=== PATIENT | female | born 1960 | race Caucasian/White ===

== ENCOUNTER → 2016-05-31 | Outpatient (CLI) | payer MEDICARE ==
--- NOTE | 2016-05-31 09:22 | CT ---
EXAMINATION TYPE: CT sinus wo con DATE OF EXAM: 05/31/2016 9:14 AM COMPARISON: NONE HISTORY: Chronic sinusitis. History of squamous cell cancer. CT DLP: 536 mGycm CONTRAST: 0 mL of Omnipaque 300 The paranasal sinuses are examined in the axial plane at 2 mm thick sections. Reconstructed images i n the coronal plane were obtained. There is dental amalgam scatter artifact Mucosal thickening or retention that the inferior left maxillary sinus. The ethmoid air cells are juan ar. The sphenoid sinuses are clear. The frontal sinuses are clear. The septum is evaluated. There is septal deviation to the right. The right ostiomeatal unit is patent. The left ostiomeatal unit may be obstructed. Patient is within the Gantry asymmetrically causing limitation on the evaluation. IMPRESSIONS: 1. Possible left maxillary ostiomeatal unit obstruction. On mucosal thickening and/or retention cyst is present left maxillary sinus.
== END | disposition home or self-care (01) ==
LOC: RADCTMAIN 08:42
PROVIDERS: ATTEND Otolaryngology
DX: J32.9 Chronic sinusitis, unspecified (principal)
CPT/HCPCS: 70486

== ENCOUNTER 2016-06-05 19:53 | Emergency (ER) | payer MEDICARE ==
[2016-06-05 20:11] VITALS: BP 152/74; PULSE 83; RESP 18; TEMP 98.3
--- NOTE | 2016-06-05 20:13 | ED ---
General Adult HPI - General Chief complaint: Nausea/Vomiting/Diarrhea Stated complaint: body aches Time Seen by Provider: 06/05/16 19:59 Source: patient Mode of arrival: ambulatory Limitations: no limitations - History of Present Illness Initial comments: This 55-year-old white female presents with a complaint of some nasal congestion. She denies any actual nasal drainage. She's had some slight facial pain at times. She denies any cough, shortness of breath, or fever. She denies any history of chronic sinusitis. She is scheduled for surgery for removal of a squamous cell carcinoma from her left eyebrow by Dr. Garcia in 6 days. She states that her current symptoms evident present for approximately 5 days. She had some nausea yesterday and one episode of diarrhea but none today. Said some slight decrease in energy and some myalgias. She has been utilizing [id number] cough and cold medications thus far. No other complaints or modifying factors. - Related Data Home Medications Medication Instructions Recorded Confirmed Aspirin [Adult Low Dose Aspirin EC] 81 mg PO DAILY 06/18/15 06/18/15 Atenolol [Tenormin] 50 mg PO DAILY 06/18/15 06/20/15 Baclofen [Lioresal] 20 mg PO TID 06/18/15 06/20/15 HYDROcodone/APAP 7.5-325MG [[place] 1 tab PO Q6HR PRN 06/18/15 06/20/15 7.5-325] LORazepam [Ativan] 0.5 mg PO DAILY 06/18/15 06/20/15 LORazepam [Ativan] 1 mg PO HS 06/18/15 06/20/15 Multivitamins, Thera [Multivitamin] 1 tab PO DAILY 06/18/15 06/18/15 Omeprazole [PriLOSEC] 20 mg PO AC-BID 06/18/15 06/20/15 Pravastatin Sodium [Pravachol] 20 mg PO DAILY 06/18/15 06/20/15 Ziprasidone [Geodon] 80 mg PO BID 06/18/15 06/20/15 buPROPion SR [Wellbutrin Sr] 150 mg PO DAILY 06/18/15 06/20/15 lamoTRIgine 150 mg PO BID 06/18/15 06/20/15 Previous Rx's Medication Instructions Recorded Cefuroxime Axetil [Ceftin] 500 mg PO BID #20 tab 06/05/16 Fluticasone Nasal Beat[place] [Flonase 2 spr EA NOSTRIL DAILY #1 bottle 06/05/16 Nasal Beat[place]] Allergies Allergy/AdvReac Type Severity Reaction Status Date / Time Penicillins Allergy Anaphylaxis Verified 06/05/16 20:01 Sulfa (Sulfonamide Allergy Anaphylaxis Verified 06/05/16 20:01 Antibiotics) Review of Systems ROS Statement: Those systems with pertinent positive or pertinent negative responses have been documented in the HPI. ROS Other: All systems not noted in ROS Statement are negative. Past Medical History Past Medical History: Cancer, Diabetes Mellitus, Hyperlipidemia, Hypertension Additional Past Medical History / Comment(s): squamous cell carcinoma Past Surgical History: Bowel Resection, Orthopedic Surgery, Tonsillectomy Past Psychological History: Anxiety, Depression General Exam - General Exam Comments Initial Comments: GENERAL: The patient is well nourished and well hydrated. VITAL SIGNS: Heart rate, blood pressure, respiratory rate reviewed as recorded in nurse's notes. EYES: Pupils are round and reactive. Extraocular movements are intact. No conjunctival / lid redness or swelling. ENT: No external evidence of injury, swelling, or ecchymosis. Airway is patent. Throat is clear. There is some tenderness over the maxillary sinuses bilaterally. There is an abnormal lesion in the left eyebrow. NECK: Nontender. No swelling or evidence of injury. No subcutaneous emphysema. Trachea is midline. No thyroid mass. HEART: Regular rate and rhythm. Good peripheral pulses. LUNGS/CHEST: Breath sounds clear and equal bilaterally. No rales, rhonchi, or wheezes. No ecchymosis, subcutaneous emphysema, or tenderness. ABDOMEN: Abdomen soft without tenderness. No palpable masses or organomegaly. No peritoneal signs. No abdominal wall swelling or ecchymosis. EXTREMITIES: No extremity tenderness. Normal muscle tone and function. No thoracolumbar tenderness. NEUROLOGIC: Sensation is grossly intact. Cranial nerve exam reveals face is symmetrical, tongue is midline, speech is clear. SKIN: No abrasions or ecchymosis is noted. No induration or masses noted. PSYCHIATRIC: Alert and oriented. Appropriate behavior and judgment. Limitations: no limitations Course Vital Signs 06/05/16 20:01 Temperature 98.3 F Pulse Rate 83 Respiratory 18 Rate Blood Pressure 152/74 O2 Sat by Pulse 94 L Oximetry Medical Decision Making - Medical Decision Making The patient is seen and examined. His felt as though she does have a sinusitis and will be treated for this. She understands and agrees with the following disposition and leaves in no distress. Disposition Clinical Impression: Sinusitis Disposition: HOME SELF-CARE Condition: Good Instructions: Sinusitis (ED) Prescriptions: Cefuroxime Axetil [Ceftin] 500 mg PO BID #20 tab Fluticasone Nasal Beatty [Flonase Nasal Beatty] 2 spr EA NOSTRIL DAILY #1 bottle Referrals: Neto Warner MD [Primary Care Provider] - 06/08/16 Time of Disposition: 20:13
== END 2016-06-05 20:19 | disposition home or self-care (01) ==
LOC: EC 19:53
DX: J32.9 Chronic sinusitis, unspecified (principal); M79.1 Myalgia; R11.0 Nausea; R19.7 Diarrhea, unspecified; E11.9 Type 2 diabetes mellitus without complications; E78.5 Hyperlipidemia, unspecified; I10 Essential (primary) hypertension; F32.9 Major depressive disorder, single episode, unspecified; F41.9 Anxiety disorder, unspecified; Z85.828 Personal history of other malignant neoplasm of skin; Z79.82 Long term (current) use of aspirin; Z79.899 Other long term (current) drug therapy; Z88.0 Allergy status to penicillin; Z88.2 Allergy status to sulfonamides
CPT/HCPCS: 99282

== ENCOUNTER 2016-06-10 08:55 | Day surgery (SDC) | payer MEDICARE ==
[2016-06-08 14:25] VITALS: BMI 30.4
[~2016-06-10 08:55] MED LIST: ACETAMINOPHEN TAB 500 MG TAB PO ONE; CLINDAMYCIN 600 MG in DEXTROSE 5% IN WATER 50 ML IVPB ONE; DEXAMETHASONE SOD PHOSPHATE 10 MG/ML 1 ML VIAL IV ONE; DEXAMETHASONE SOD PHOSPHATE 4 MG/ML 1 ML VIAL IV ONE; FAMOTIDINE 20 MG/2 ML VIAL IV ONE; HYDROmorphone 1 MG/ML 1 ML SYRINGE IVP PRN; LACTATED RINGERS 1,000 ML IV SCH; MIDAZOLAM 2 MG/2 ML VIAL IV PRN; ONDANSETRON 4 MG/2 ML VIAL IVP ONE
[2016-06-10 09:43] LABS: Glucose,Whole Blood 118 mg/dL (75-99)
[2016-06-10] MEDS ORDERED: LIDOCAINE 1% 20 ML VIAL (10MG/ML) FOR IV START INTRADERMA ONE (09:44)
[2016-06-10] MEDS ORDERED: ePHEDrine 50 MG/ML 1 ML AMP ONE (10:07)
[2016-06-10] MEDS ORDERED: fentaNYL (PF) 50 MCG/ML 2 ML AMP ONE (10:07)
[2016-06-10] MEDS ORDERED: DEXAMETHASONE SOD PHOS (MDV) 100 MG/10 ML VIAL ONE (10:07)
[2016-06-10] MEDS ORDERED: LIDOCAINE 1% INJ 10MG/ML (20 ML MDV) ONE (10:07)
[2016-06-10] MEDS ORDERED: PROPOFOL 10 MG/ML 20 ML VIAL IV ONE (10:07)
[2016-06-10] MEDS ORDERED: MIDAZOLAM 2 MG/2 ML VIAL ONE (10:07)
[2016-06-10] MEDS ORDERED: SUCCINYLCHOLINE CHLORIDE 100 MG/5 ML SYR IV ONE (10:07)
[2016-06-10] MEDS ORDERED: BUPIVACAIN-EPI 0.5%-1:200,000 30 ML VIAL SQ ONE ×2 (10:45)
[2016-06-10] MEDS ORDERED: LIDOCAINE 1%-EPI 1:100,000 20 ML VIAL SQ ONE ×2 (10:45)
[2016-06-10] MEDS ORDERED: LACTATED RINGERS 1,000 ML IV ONE (11:33)
[2016-06-10 11:54] VITALS: TEMP 98.6
--- NOTE | 2016-06-10 12:05 | P.OP ---
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 Previous biopsy demonstrated squamous cell carcinoma. Wider resection is recommended. All risks, benefits, and alternative therapies were discussed in detail. Consent was obtained and all questions were answered. Operative Findings: Left eyebrow exophytic fungating mass Description of Procedure: Patient underwent a general inhalation anesthetic and the face was sterilely prepped and draped in usual fashion. This very large mass was marked measuring 4.2 x 4 cm anesthetized appropriately and removed with a 15 blade plastic scissors and a Brown-Adson forceps and marked for orientation. Hemostasis was obtained with use of a to coagulation. We sent this for frozen section and all margins were negative for tumor per the pathologist. This patient had very large defect of the left brow and upper eyelid. We elevated lateral and medial pedicle flaps and an H-type incision was made. After extensive undermining in all directions we removed dog ear and rotated the skin and brow into position and we were able to reapproximate the medial and lateral eyebrow. Clearly eyebrow was more shorter than it was but the approximation was excellent after we rotated the skin into the defect and close this area. The secondary defect measured 8.4 x 8 cm. The close the defect after the rotational flaps were placed with 2-0 Vicryl 3-0 PDS and the skin was closed with 2-0 nylon 4-0 PDS 4- 0 Prolene and 5-0 Prolene. Excellent approximation was obtained the patient tolerated this well and follow-up will be in the office in 1 week for recheck. The patient is to contact me if any problems should arise. Steri-Strips were applied along with Medpor tape
[2016-06-10 13:45] VITALS: BP 125/69; PULSE 78; RESP 20
== END 2016-06-10 13:54 | disposition home or self-care (01) ==
LOC: OR 08:55
PROVIDERS: ATTEND Otolaryngology
DX: C44.329 Squamous cell carcinoma of skin of other parts of face (principal); C44.129 Squamous cell carcinoma of skin of left eyelid, including canthus; I10 Essential (primary) hypertension; E78.5 Hyperlipidemia, unspecified; E11.9 Type 2 diabetes mellitus without complications; Z79.84 Long term (current) use of oral hypoglycemic drugs; F39 Unspecified mood [affective] disorder; Z86.73 Personal history of transient ischemic attack (TIA), and cerebral infarction without residual deficits; K21.9 Gastro-esophageal reflux disease without esophagitis; Z79.82 Long term (current) use of aspirin; Z79.891 Long term (current) use of opiate analgesic; Z79.899 Other long term (current) drug therapy; Z88.0 Allergy status to penicillin; Z88.2 Allergy status to sulfonamides; F41.9 Anxiety disorder, unspecified; F32.9 Major depressive disorder, single episode, unspecified; Z91.09 Other allergy status, other than to drugs and biological substances
CPT/HCPCS: 88305; 88331; 88332; 14301; 14302; J2250; J1100 ×2; J2405; J2001; J3010; J0330; J2704

== ENCOUNTER → 2016-11-15 | Outpatient (CLI) | payer MEDICARE ==
--- NOTE | 2016-11-17 09:02 | MM ---
Reason for exam: screening (asymptomatic). Last mammogram was performed 1 year and 1 month ago. History: Patient is postmenopausal and has history of colon cancer at age 51. Family history of breast cancer in paternal aunt at age 30. Took hormonal contraceptives for 5 years beginning at age 47. Physical Findings: A clinical breast exam by your physician is recommended on an annual basis and results should be correlated with mammographic findings. MG 3D Screening Mammo W/Cad Bilateral CC and MLO view(s) were taken. Prior study comparison: October 20, 2015, bilateral MG 3d screening mammo w/cad. July 22, 2014, bilateral MG screening mammo w CAD. The breast tissue is heterogeneously dense. This may lower the sensitivity of mammography. Finding: There are typically benign vascular calcifications in both breasts. There is no discrete abnormality. ASSESSMENT: Benign, BI-RAD 2 RECOMMENDATION: Routine screening mammogram of both breasts in 1 year.
== END | disposition home or self-care (01) ==
LOC: RADMAMWWP 13:35
PROVIDERS: ATTEND Internal Medicine
DX: Z12.31 Encounter for screening mammogram for malignant neoplasm of breast (principal)
CPT/HCPCS: 77063; G0202

== ENCOUNTER → 2017-04-27 | Outpatient (CLI) | payer MEDICARE ==
--- NOTE | 2017-04-27 11:15 | US ---
EXAMINATION TYPE: US kidneys/renal and bladder DATE OF EXAM: 04/27/2017 COMPARISON: 05/06/2015 CLINICAL HISTORY: Frequent urinary tract infection N39. UTI EXAM MEASUREMENTS: Right Kidney: 10.2 x 4.2 x 5.0 cm Left Kidney: 10.7 x 4.6 x 5.8 cm Right Kidney: No hydronephrosis or masses seen Left Kidney: No hydronephrosis or masses seen Bladder: wnl Bilateral Jets seen: Yes IMPRESSION: Normal renal ultrasound. 2. Urinary bladder is unremarkable.
== END | disposition home or self-care (01) ==
LOC: RADUSWWP 10:19
PROVIDERS: ATTEND Internal Medicine
DX: N39.0 Urinary tract infection, site not specified (principal)
CPT/HCPCS: 76770

== ENCOUNTER → 2017-06-29 | Day surgery (SDC) | payer MEDICARE ==
[2017-06-28 12:25] VITALS: BMI 29.1
[~2017-06-29] MED LIST changes: -ACETAMINOPHEN TAB 500 MG TAB PO ONE; +ALPRAZolam 0.25 MG TAB PO PRN; +ALPRAZolam 0.5 MG TAB PO PRN; +ASPIRIN 325 MG TAB PO STA; +ASPIRIN 81 MG PO SCH; +ATENOLOL 50 MG TAB PO SCH; +ATORVASTATIN 80 MG TAB PO STA; -CLINDAMYCIN 600 MG in DEXTROSE 5% IN WATER 50 ML IVPB ONE; -DEXAMETHASONE SOD PHOSPHATE 10 MG/ML 1 ML VIAL IV ONE; -DEXAMETHASONE SOD PHOSPHATE 4 MG/ML 1 ML VIAL IV ONE; -FAMOTIDINE 20 MG/2 ML VIAL IV ONE; +FOLIC PO SCH; +HEPARIN SODIUM 1,000 UN/ML (10ML VL) IV ONE; +HEPARIN SODIUM 1,000 UN/ML (10ML VL) ONE; +HYDROcodone/APAP 10-325MG 1 EACH TAB PO PRN; -HYDROmorphone 1 MG/ML 1 ML SYRINGE IVP PRN; +IOPAMIDOL-370 125ML BTL INJ ONE; +IRON PO SCH; +IV FLUID CONTINUATION 900 ML IV ONE; -LACTATED RINGERS 1,000 ML IV SCH; +LAMOTRIGINE 150 MG PO SCH; +LIDOCAINE 2% INJ 20 MG/ML (20 ML MDV) ONE; +LUTEIN PO SCH; +MIDAZOLAM 2 MG/2 ML VIAL IV ONE; -MIDAZOLAM 2 MG/2 ML VIAL IV PRN; +MIDAZOLAM 2 MG/2 ML VIAL ONE; +MULTIVIT MIN PO SCH; +NITROGLYCERIN SL TABS 0.4 MG TAB SUBLINGUAL PRN; -ONDANSETRON 4 MG/2 ML VIAL IVP ONE; +PRAVASTATIN SODIUM 20 MG TAB PO SCH; +RX INFO: IV CONTRAST WAS GIVEN 1 EACH MISC MISCELLANE PRN; +SODIUM CHLORIDE 0.9% 1,000 ML IV SCH; +SODIUM CHLORIDE 0.9% 1,000 ML in EMPTY BAG 1 BAG IV ONE; +VERAPAMIL 2.5 MG/ML 2 ML AMP ONE; +ZIPRASIDONE 80 MG CAP PO SCH; +[UNRECOGNIZED DRUG - OTHER] PO SCH; +buPROPion XL 300 MG TAB.ER.24H PO SCH; +diphenhydrAMINE 50 MG/ML 1 ML VIAL IVP ONE; +diphenhydrAMINE 50 MG/ML 1 ML VIAL ONE; +fentaNYL (PF) 50 MCG/ML 2 ML AMP IVP ONE; +fentaNYL (PF) 50 MCG/ML 2 ML AMP ONE
[2017-06-29 06:55] VITALS: PULSE 59; TEMP 98.1
[2017-06-29 07:08] LABS: Glucose,Whole Blood 99 mg/dL (75-99)
--- NOTE | 2017-06-29 08:34 | CC ---
CARDIAC CATHETERIZATION REPORT Mrs. Ruggiero is a 56-year-old female with known history of hypertension, hyperlipidemia, diabetes mellitus, who has been complaining of episode of chest discomfort. She underwent a myocardial perfusion imaging that revealed a fixed anterior wall defect with reported fernando-infarct ischemia. In view of that, recommendation was made regarding cardiac catheterization. The procedure as well as the risks and the complications were discussed with the patient who is in full understanding and agreement. 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 She was prepped and draped in conventional fashion. Using Xylocaine anesthesia in the Seldinger technique, a 6-Latvian sheath was introduced in the right radial artery. Selective right and left coronary angiography performed using 5-Latvian 3.5 bend right and left Chaz catheter. Multiple views of the coronary artery including hemiaxial views were obtained. Following that 5-Latvian tight pigtail catheter was introduced into the left ventricle and a 30-degree PERALTA view of the left ventricle was obtained. Following that, the catheter and sheaths were removed. Hemostasis was obtained with deployment of a TR band. There was no immediate complication. Patient is returned to her room in stable condition. FINDINGS: LEFT MAIN: This is a large-sized vessel bifurcating in left circumflex, left anterior descending artery. Left main coronary artery has no evidence of high-grade stenosis. LEFT ANTERIOR DESCENDING ARTERY: This is a large-sized vessel reaching toward the apex giving rise to a large diagonal branch in the proximal segment. The left anterior descending artery and its branches have no evidence of obstructive coronary artery disease. LEFT CIRCUMFLEX: This is a nondominant vessel giving rise to 2 obtuse marginal branches. The first one is large in caliber. The left circumflex as well as branches have no evidence of obstructive coronary artery disease. RIGHT CORONARY ARTERY: This is a dominant vessel large in caliber bifurcating in PDA and posterolateral segment and branches. The right coronary artery as well as branches have no evidence of obstructive coronary artery disease. LEFT VENTRICULOGRAM: Left ventriculogram was performed in 30-degree PERALTA view and revealed normal left ventricular size and systolic function. Ejection fraction 16 to 20 mmHg. CONCLUSION: 1. Normal coronary arteries. 2. Normal left ventricular size and systolic function. RECOMMENDATION: In view of finding anatomy, I recommend to continue medical therapy with aggressive coronary risk modification that has been initiated. Those findings and recommendation were discussed with the patient and her family and are in full understanding and agreement. Duration of procedure is 20 minutes. MMODL / IJN: [id number] /
--- NOTE | 2017-06-29 08:40 | LTR ---
June 29, 2017 Re: Eileen Ruggiero Dear Dr. Warner; I had the opportunity to perform cardiac catheterization on Mrs. Ruggiero at [facility] on the 29 of June and a full copy of the note will be forwarded to you. In brief, she was found to have no evidence of obstructive coronary artery disease with normal left ventricular size and systolic function. Based on those findings, I recommend to continue medical therapy with the aggressive coronary risk modifications that have been initiated. Thank you again for allowing me the opportunity to participate in her care. Please feel free to call for any questions. Sincerely yours, MD VICENTE Serna / RANDALLN: [id number] /
[2017-06-29 14:17] VITALS: RESP 18
[2017-06-29 14:18] VITALS: BP 114/68
== END | disposition home or self-care (01) ==
LOC: CATHCVL 06:19
PROVIDERS: ATTEND Internal Medicine Interventional Cardiology
DX: R07.89 Other chest pain (principal); R94.39 Abnormal result of other cardiovascular function study; I10 Essential (primary) hypertension; E78.2 Mixed hyperlipidemia; E11.9 Type 2 diabetes mellitus without complications; Z79.84 Long term (current) use of oral hypoglycemic drugs; Z79.82 Long term (current) use of aspirin; Z79.1 Long term (current) use of non-steroidal anti-inflammatories (NSAID); Z79.899 Other long term (current) drug therapy; Z88.0 Allergy status to penicillin; Z88.2 Allergy status to sulfonamides
CPT/HCPCS: 93458; C1894; C1769; J2250; J1200; J3010; J1644; Q9967

== ENCOUNTER → 2018-01-17 | Outpatient (CLI) | payer MEDICARE ==
--- NOTE | 2018-01-18 15:02 | MM ---
Reason for exam: screening (asymptomatic). Last mammogram was performed 1 year and 2 months ago. History: Patient is postmenopausal, has history of colon cancer at age 51, and history of other cancer. Family history of breast cancer in paternal aunt at age 30. Took hormonal contraceptives for 5 years beginning at age 47. Physical Findings: A clinical breast exam by your physician is recommended on an annual basis and results should be correlated with mammographic findings. MG 3D Screening Mammo W/Cad Bilateral CC, MLO, and XCCL view(s) were taken. Prior study comparison: November 15, 2016, bilateral MG 3d screening mammo w/cad. October 20, 2015, bilateral MG 3d screening mammo w/cad. The breast tissue is heterogeneously dense. This may lower the sensitivity of mammography. Stable benign calcifications. There is no discrete abnormality. No significant changes when compared with prior studies. ASSESSMENT: Benign, BI-RAD 2 RECOMMENDATION: Routine screening mammogram of both breasts in 1 year.
== END ==
LOC: RADMAMWWP 09:40
PROVIDERS: ATTEND Internal Medicine
DX: Z12.31 Encounter for screening mammogram for malignant neoplasm of breast (principal)
CPT/HCPCS: 77063; 77067

== ENCOUNTER 2018-07-03 11:26 | Observation (INO) | payer MEDICARE ==
[2018-07-03 12:13] LABS: Glucose,Whole Blood 123 mg/dL (75-99)
[2018-07-03 13:22] LABS: Basophils # (A) 0.1 k/uL (0-0.2); Basophils % (A) 1 %; Eosinophils # (A) 0.3 k/uL (0-0.7); Eosinophils % (A) 3 %; HGB 12.2 gm/dL (11.4-16.0); Lymphocytes # (A) 1.9 k/uL (1.0-4.8); Lymphocytes % (A) 23 %; MCHC 31.9 g/dL (31.0-37.0); MCV 93.8 fL (80.0-100.0); Mean Platelet Volume 6.9; Monocytes # (A) 0.3 k/uL (0-1.0); Monocytes % (A) 4 %; Neutrophils # (A) 5.7 k/uL (1.3-7.7); Neutrophils % (A) 67 %; Platelet Count 294 k/uL (150-450); RBC 4.06 m/uL (3.80-5.40); RDW 12.3 % (11.5-15.5); WBC 8.4 k/uL (3.8-10.6)
[2018-07-03 13:48] LABS: Creatine Kinase 90 U/L (30-135)
[2018-07-03 14:01] LABS: Creatine Kinase MB 0.9 ng/mL (0.0-2.4); Troponin I <0.012 ng/mL (0.000-0.034)
[2018-07-03] MEDS ORDERED: ASPIRIN 81 MG PO STA (14:42)
[2018-07-03] MEDS: ASPIRIN 325 MG TAB PO SCH (14:44)
[2018-07-03] MEDS ORDERED: CALCIUM CARBONATE 500 MG CHEWABLE PO PRN (15:22)
[2018-07-03 15:31] LABS: ALT 27 U/L (9-52); AST 21 U/L (14-36); Albumin 4.5 g/dL (3.5-5.0); Alkaline Phosphatase 91 U/L (38-126); Anion Gap 6 mmol/L; Blood Urea Nitrogen 13 mg/dL (7-17); Carbon Dioxide 31 mmol/L (22-30); Chloride 99 mmol/L (98-107); Glucose 113 mg/dL (74-99); Potassium 4.9 mmol/L (3.5-5.1); Sodium 136 mmol/L (137-145); Total Bilirubin 0.3 mg/dL (0.2-1.3); Total Protein 7.4 g/dL (6.3-8.2)
--- NOTE | 2018-07-03 15:36 | P.HPIM ---
History of Present Illness H&P Date: 07/03/18 Chief Complaint: Chest pain This is a 57-year-old female with a known past medical history of diabetes, hypertension, hyperlipidemia, TIA and depression. She presents to the office with complaints of chest pain. She was a direct admit from Dr. Warner's office. Per Dr. Warner the EKG in the office was normal. Patient is complaining of chest pressure in the center of the chest sternum area and epigastric area. She's also stating she's had some acid reflux heartburn symptoms. Patient reports symptoms have been ongoing over the last 3 days. Initially 3 days ago she went to get into her daughter's car and hit the top of her head on the right side. Patient reports that she was very dizzy had a headache for most of the day afterwards. Denies any loss of consciousness. Denies any new vision changes. Denies any numbness or tingling of the extremities. Per patient's he noted that she seemed to be off balance. Computed tomography scan of the brain has been ordered. Patient reports since hitting her head she just has not felt right and has been very nauseous and having chest pains. She's having urinary frequency. Denies any fever, chills, sweats, vomiting, bowel movement changes. Denies any burning with urination. Patient is been admitted to the observation floor. Cardiology is been placed on consult. Patient had a heart catheterization in June 2017 at that time reported normal coronary arteries Review of Systems Please refer to HPI otherwise unremarkable 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, colon ca with bowel resection, History of Any Multi-Drug Resistant Organisms: None Reported Past Surgical History: Bowel Resection, Orthopedic Surgery, Tonsillectomy Additional Past Surgical History / Comment(s): bilat knee arthroscopy, left foot sx, Past Anesthesia/Blood Transfusion Reactions: Postoperative Nausea & Vomiting (PONV) Past Psychological History: Anxiety, Depression Smoking Status: Never smoker Past Alcohol Use History: None Reported Past Drug Use History: None Reported Medications and Allergies Home Medications Medication Instructions Recorded Confirmed Type Aspirin [Adult Low Dose Aspirin EC] 81 mg PO DAILY 06/18/15 07/03/18 History Atenolol [Tenormin] 50 mg PO DAILY 06/18/15 07/03/18 History Pravastatin Sodium [Pravachol] 20 mg PO DAILY 06/18/15 07/03/18 History lamoTRIgine 150 mg PO BID 06/18/15 07/03/18 History HYDROcodone/APAP 10-325MG [[place] 1 tab PO Q6H PRN 06/08/16 07/03/18 History 10-325] buPROPion XL [Wellbutrin Xl] 300 mg PO DAILY 06/08/16 07/03/18 History Naproxen 500 mg PO BID 06/28/17 07/03/18 History metFORMIN HCL [Glucophage] 500 mg PO BID 06/28/17 07/03/18 History Baclofen 10 mg PO DAILY 07/03/18 07/03/18 History Ziprasidone [Geodon] 80 mg PO DAILY 07/03/18 07/03/18 History Allergies Allergy/AdvReac Type Severity Reaction Status Date / Time Penicillins Allergy Anaphylaxis Verified 07/03/18 12:34 Sulfa (Sulfonamide Allergy Anaphylaxis Verified 07/03/18 12:34 Antibiotics) Physical Exam Vitals: Vital Signs Temp Resp BP Pulse Ox 07/03/18 15:16 97.6 F 17 127/85 97 07/03/18 12:00 97.5 F L 145/77 96 Intake and Output 07/03/18 07/03/18 07/03/18 06:59 14:59 22:59 Intake Total 240 Balance 240 Intake: Oral 240 Other: Voiding Method Toilet Weight 82.554 kg Head normocephalic. There is no evidence for any bump on the right side of her head. After palpating the head then did start reporting that her head hurt. No evidence of any laceration. Neck supple Lungs clear to auscultation bilaterally no wheezing or crackles Heart regular rate and rhythm S1-S2, no rub or gallop Abdomen is soft nontender nondistended positive bowel sounds no hepatosplenomegaly Extremities no edema Neuro alert and orientated to 3. No facial droop or slurred speech. Hand occupational hygienist equal bilaterally lower extremity strength equal bilaterally Results CBC & Chem 7: 07/03/18 13:08 07/03/18 13:08 Labs: Abnormal Lab Results - Last 24 Hours (Table) 07/03/18 Range/Units 12:11 POC Glucose (mg/dL) 123 H (75-99) mg/dL Thrombosis Risk Factor Assmnt - Choose All That Apply Any of the Below Risk Factors Present?: Yes Each Factor Represents 1 point: Age 41-60 years Other Risk Factors: No Other congenital or acquired thrombophilia - If yes, enter type in comment: No Thrombosis Risk Factor Assessment Total Risk Factor Score: 1 Thrombosis Risk Factor Assessment Level: Low Risk Assessment and Plan Assessment: 1. Chest pain: Cardiac workup in progress. Check EKG, place patient on telemetry. Consult cardiology. Her cardiac enzymes first set of cardiac enzymes are negative. Check chest x-ray. Check d-dimer. Last heart catheterization June 2017 reported normal coronary arteries. Check amylase and lipase 2. Head trauma: 3 days ago patient hit the top of the right side of her head. Order computed tomography scan of the brain 3. Acid reflux symptoms with heartburn and indigestion. Ruling out any cardiac causes. We'll place patient on Protonix and Tums 4. Urinary frequency check urinalysis with culture rule out UTI 5. Diabetes mellitus type 2 add sliding scale coverage hold metformin during hospitalization 6. Hyperlipidemia 7. hypertension 8. TIA history 9. anxiety and depression 10. Colon Cancer with bowel resection GI prophylaxis protonix and DVT prophylaxis lovenox Time with Patient: Greater than 30 (Greater than 50% of the total time spent in counseling and coordination of care.I performed an examination of the patient and discussed their management with the physician Resident Inspector. I have reviewed the Physician Resident Inspector's notes and agree with the documented findings and plan of care)
--- NOTE | 2018-07-03 15:49 | CT ---
EXAMINATION TYPE: CT brain wo con DATE OF EXAM: 07/03/2018 COMPARISON: None HISTORY: Headache and dizziness CT DLP: 1148.4 mGycm Automated exposure control for dose reduction was used. Head CT using departmental protocol FINDINGS: Inflammatory change possible mucus retention cysts present within the left maxillary sinus. Brain bryant ws no hemorrhage or hydrocephalus. Calvarium is intact. Mastoid air cells are well aerated. IMPRESSION: NO SIGNIFICANT BRAIN ABNORMALITY EVIDENT. SINUS DISEASE.
[2018-07-03 15:58] LABS: Amylase 42 U/L (30-110); Lipase 72 U/L (23-300)
[2018-07-03] MEDS: PANTOPRAZOLE 40 MG TABLET PO SCH (16:00)
[2018-07-03] MEDS: HYDROcodone/APAP 10-325MG 1 EACH TAB PO PRN (16:07)
[2018-07-03] MEDS: lamoTRIgine 100 MG TAB PO SCH (16:07)
--- NOTE | 2018-07-03 16:08 | XR ---
EXAMINATION TYPE: XR chest 2V DATE OF EXAM: 07/03/2018 COMPARISON: Prior chest x-ray 04/04/2012 HISTORY: Chest pain TECHNIQUE: Frontal and lateral views of the chest are obtained. FINDINGS: There is no focal air space opacity, pleural effusion, or pneumothorax seen. The cardiac silhouette size is within normal limits. The osseous structures are intact. There are overlying car diac leads. IMPRESSION: No acute cardiopulmonary process.
[2018-07-03 16:14] LABS: Appearance,Urine Clear (Clear); Bilirubin,Urine Negative (Negative); Blood,Urine Negative (Negative); Color,Urine Light Yellow; Glucose,Urine (UA) Negative (Negative); Ketones,Urine Negative (Negative); Leukocyte Esterase,Urine Negative (Negative); Nitrite,Urine Negative (Negative); PH, Urine 7.5 (5.0-8.0); Protein,Urine Negative (Negative); Specific Gravity,Urine 1.006 (1.001-1.035); Urobilinogen,Urine <2.0 mg/dL (<2.0)
[2018-07-03 16:38] LABS: Glucose,Whole Blood 102 mg/dL (75-99)
[2018-07-03] MEDS: ZIPRASIDONE 80 MG CAP PO SCH (16:53)
[2018-07-03] MEDS: INSULIN ASPART (NovoLOG) 100 UNIT/ML VIAL SQ SCH ×2 (17:07→21:14)
[2018-07-03] MEDS ORDERED: ACETAMINOPHEN TAB 325 MG TAB PO STA (17:59)
[2018-07-03 21:00] LABS: Glucose,Whole Blood 142 mg/dL (75-99)
[2018-07-03 21:12] LABS: Creatine Kinase 74 U/L (30-135)
[2018-07-03 21:25] LABS: Creatine Kinase MB 0.7 ng/mL (0.0-2.4); Troponin I <0.012 ng/mL (0.000-0.034)
[2018-07-04 05:39] LABS: Basophils # (A) 0.1 k/uL (0-0.2); Basophils % (A) 1 %; Eosinophils # (A) 0.3 k/uL (0-0.7); Eosinophils % (A) 5 %; HCT 36.7 % (34.0-46.0); HGB 12.3 gm/dL (11.4-16.0); Lymphocytes # (A) 2.7 k/uL (1.0-4.8); Lymphocytes % (A) 37 %; MCH 31.4 pg (25.0-35.0); MCHC 33.6 g/dL (31.0-37.0); MCV 93.3 fL (80.0-100.0); Mean Platelet Volume 7.1; Monocytes # (A) 0.4 k/uL (0-1.0); Monocytes % (A) 5 %; Neutrophils # (A) 3.6 k/uL (1.3-7.7); Neutrophils % (A) 50 %; Platelet Count 243 k/uL (150-450); RBC 3.93 m/uL (3.80-5.40); RDW 12.8 % (11.5-15.5); WBC 7.3 k/uL (3.8-10.6)
[2018-07-04 05:47] LABS: ALT 26 U/L (9-52); AST 19 U/L (14-36); Albumin 4.4 g/dL (3.5-5.0); Alkaline Phosphatase 87 U/L (38-126); Anion Gap 8 mmol/L; Blood Urea Nitrogen 14 mg/dL (7-17); Calcium 9.7 mg/dL (8.4-10.2); Carbon Dioxide 28 mmol/L (22-30); Chloride 100 mmol/L (98-107); Glucose 117 mg/dL (74-99); Potassium 4.6 mmol/L (3.5-5.1); Sodium 136 mmol/L (137-145); Total Bilirubin 0.4 mg/dL (0.2-1.3); Total Protein 7.1 g/dL (6.3-8.2)
[2018-07-04] MEDS: HYDROcodone/APAP 10-325MG 1 EACH TAB PO PRN (05:53)
[2018-07-04 05:54] LABS: Creatine Kinase 61 U/L (30-135)
[2018-07-04 06:06] LABS: Creatine Kinase MB 0.5 ng/mL (0.0-2.4); Troponin I <0.012 ng/mL (0.000-0.034)
[2018-07-04] MEDS ORDERED: ZIPRASIDONE 80 MG CAP PO SCH ×2 (07:30→15:59)
[2018-07-04 08:04] VITALS: RESP 15
[2018-07-04] MEDS: INSULIN ASPART (NovoLOG) 100 UNIT/ML VIAL SQ SCH ×2 (08:23→12:43)
[2018-07-04] MEDS ORDERED: ATENOLOL 50 MG TAB PO SCH (09:00)
[2018-07-04] MEDS ORDERED: ENOXAPARIN 40 MG/0.4 ML SYRINGE SQ SCH (09:00)
[2018-07-04] MEDS ORDERED: PRAVASTATIN SODIUM 20 MG TAB PO SCH (09:00)
[2018-07-04] MEDS ORDERED: BACLOFEN 10 MG TAB PO SCH (09:00)
[2018-07-04] MEDS ORDERED: buPROPion XL 300 MG TAB.ER.24H PO SCH (09:00)
--- NOTE | 2018-07-04 10:11 | P.CRDCN ---
History of Present Illness History of present illness: This is a pleasant 57-year-old female past medical history significant for diabetes mellitus, hypertension and dyslipidemia. She denies prior history of coronary artery disease. She underwent cardiac catheterization in June 2017 revealing normal coronary arteries with no evidence of obstructive disease. She was at her primary care physician's office yesterday complaining of 3-4 days of a heavy pressure like someone sitting on the chest in the mid-sternal region with radiation to both upper shoulders. There are short bursts of sharp pain. She gets mildly diaphoretic. Pain has been intermittent with no specific aggravating factors. But she does notice it is worse when she is sitting up or moving. No shortness of breath, dizziness, nausea, vomiting or palpitations. She was sent to the hospital for direct and for further evaluation. She is seen and examined resting comfortably in bed. She has no active chest pain at this time. She states she was given Strong earlier this morning and that relieved her discomfort. EKG reveals sinus mechanism with no acute ST or T-wave abnormalities. Chest xray negative for an acute cardiopulmonary process. Laboratory data reviewed, WBC 7.3, hemoglobin 12.3, platelets 243, sodium 136, potassium 4.6, creatinine 0.81, cardiac enzymes negative 3. Current cardiac medications include aspirin 81 mg daily, atenolol 50 mg daily an d pravastatin 20 mg daily. At the time of my exam: CONSTITUTIONAL: Denies fever. Denies chills. EYES: Denies blurred vision. Denies vision changes. Denies eye pain. EARS, NOSE, MOUTH & THROAT: Denies headache. Denies sore throat. Denies ear pain. CARDIOVASCULAR: Denies chest pain. Denies shortness of breath. Denies orthopnea. Denies PND. Denies palpitations. RESPIRATORY: Denies cough. GASTROINTESTINAL: Denies abdominal pain. Denies diarrhea. Denies constipation. Denies nausea. Denies vomiting. MUSCULOSKELETAL: Denies myalgias. INTEGUMENTARY: Denies pruitis. Denies rash. NEUROLOGIC: Denies numbness. Denies tingling. Denies weakness. PSYCHIATRIC: Denies anxiety. Denies depression. ENDOCRINE: Denies fatigue. Denies weight change. Denies polydipsia. Denies polyurina. GENITOURINARY: Denies burning, hematuria or urgency with micturation. HEMATOLOGIC: Denies history of anemia. Denies bleeding. Blood pressure 107/72 heart rate 52 afebrile maintaining oxygen saturation on room air GENERAL: This is a 57-year-old female in no apparent distress at the time of my examination. HEENT: Head is atraumatic, normocephalic. Pupils are equal, round. Sclerae anicteric. Conjunctivae are clear. Mucous membranes of the mouth are moist. Neck is supple. There is no jugular venous distention. No carotid bruit is heard. LUNGS: Clear to auscultation no wheezes, rales or rhonchi. No chest wall tenderness is noted on palpation or with deep breathing. HEART: Regular rate and rhythm without murmurs, rubs or gallops. S1 and S2 heard. ABDOMEN: Soft, nontender. Bowel sounds are heard. No organomegaly noted. EXTREMITIES: No evidence of peripheral edema and no calf tenderness noted. VASCULAR: Radial and dorsalis pedis pulses palpated, no evidence of clubbing. NEUROLOGIC: Patient is awake, alert and oriented x3. ASSESSMENT Chest pain, atypical for angina. An acute coronary event has been ruled out. Recent cardiac catheterization June 2017 revealing normal coronary arteries. Hypertension Dyslipidemia Diabetes mellitus PLAN An acute coronary event has been ruled out. Check lipid profile. Obtain 2-D echocardiogram and Doppler study to assess cardiac structure and function. Perform exercise stress test to assess for stress induced ischemia. If normal she is stable for discharge from a cardiac perspective. Follow up with Dr. Duque in 2 weeks. Thank you kindly for this consultation. Nurse Practitioner note has been reviewed, I agree with a documented findings and plan of care. Patient was seen and examined. 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, colon ca with bowel resection, History of Any Multi-Drug Resistant Organisms: None Reported Past Surgical History: Bowel Resection, Orthopedic Surgery, Tonsillectomy Additional Past Surgical History / Comment(s): bilat knee arthroscopy, left foot sx, Past Anesthesia/Blood Transfusion Reactions: Postoperative Nausea & Vomiting (PONV) Past Psychological History: Anxiety, Depression Smoking Status: Never smoker Past Alcohol Use History: None Reported Past Drug Use History: None Reported Medications and Allergies Home Medications Medication Instructions Recorded Confirmed Type Aspirin [Adult Low Dose Aspirin EC] 81 mg PO DAILY 06/18/15 07/03/18 History Atenolol [Tenormin] 50 mg PO DAILY 06/18/15 07/03/18 History Pravastatin Sodium [Pravachol] 20 mg PO DAILY 06/18/15 07/03/18 History lamoTRIgine 150 mg PO BID 06/18/15 07/03/18 History HYDROcodone/APAP 10-325MG [Strong 1 tab PO Q6H PRN 06/08/16 07/03/18 History 10-325] buPROPion XL [Wellbutrin Xl] 300 mg PO DAILY 06/08/16 07/03/18 History metFORMIN HCL [Glucophage] 500 mg PO BID 06/28/17 07/03/18 History Baclofen 10 mg PO DAILY 07/03/18 07/03/18 History Ziprasidone [Geodon] 80 mg PO DAILY 07/03/18 07/03/18 History Allergies Allergy/AdvReac Type Severity Reaction Status Date / Time Penicillins Allergy Anaphylaxis Verified 07/03/18 12:34 Sulfa (Sulfonamide Allergy Anaphylaxis Verified 07/03/18 12:34 Antibiotics) Physical Exam Vitals: Vital Signs Temp Pulse Resp BP Pulse Ox 07/04/18 04:00 97.6 F 62 18 134/80 99 07/04/18 03:12 18 07/04/18 00:00 97.5 F L 62 18 129/74 98 07/03/18 23:43 18 07/03/18 20:00 97.4 F L 63 18 101/66 96 07/03/18 16:00 17 07/03/18 15:16 97.6 F 17 127/85 97 07/03/18 12:00 97.5 F L 145/77 96 Intake and Output 07/03/18 07/04/18 07/04/18 22:59 06:59 14:59 Intake Total 240 Balance 240 Intake: Oral 240 Other: Voiding Method Toilet Toilet # Voids 1 1 Results 07/04/18 05:23 07/04/18 05:23 Cardiac Enzymes 07/03/18 07/03/18 07/03/18 Range/Units 13:08 13:08 20:24 AST 21 (14-36) U/L CK-MB (CK-2) 0.9 0.7 (0.0-2.4) ng/mL Troponin I <0.012 <0.012 (0.000-0.034) ng/mL 07/04/18 07/04/18 Range/Units 05:23 05:23 AST 19 (14-36) U/L CK-MB (CK-2) 0.5 (0.0-2.4) ng/mL Troponin I <0.012 (0.000-0.034) ng/mL CBC 07/03/18 07/04/18 Range/Units 13:08 05:23 WBC 8.4 7.3 (3.8-10.6) k/uL RBC 4.06 3.93 (3.80-5.40) m/uL Hgb 12.2 12.3 (11.4-16.0) gm/dL Hct 38.0 36.7 (34.0-46.0) % Plt Count 294 243 (150-450) k/uL Comprehensive Metabolic Panel 07/03/18 07/04/18 Range/Units 13:08 05:23 Sodium 136 L 136 L (137-145) mmol/L Potassium 4.9 4.6 (3.5-5.1) mmol/L Chloride 99 100 (98-107) mmol/L Carbon Dioxide 31 H 28 (22-30) mmol/L BUN 13 14 (7-17) mg/dL Creatinine 0.78 0.81 (0.52-1.04) mg/dL Glucose 113 H 117 H (74-99) mg/dL Calcium 10.0 9.7 (8.4-10.2) mg/dL AST 21 19 (14-36) U/L ALT 27 26 (9-52) U/L Alkaline Phosphatase 91 87 (38-126) U/L Total Protein 7.4 7.1 (6.3-8.2) g/dL Albumin 4.5 4.4 (3.5-5.0) g/dL Current Medications Generic Name Dose Route Start Last Admin Trade Name Freq PRN Reason Stop Dose Admin Hydrocodone Bitart/Acetaminophen 1 each 07/03/18 12:58 07/04/18 05:53 Strong 10 PO 1 each Q6H PRN Administration Pain Aspirin 325 mg 07/03/18 13:15 07/03/18 14:44 Aspirin PO Not Given DAILY [facility] Atenolol 50 mg 07/04/18 09:00 Tenormin PO DAILY [facility] Baclofen 10 mg 07/04/18 09:00 Lioresal PO DAILY [facility] Bupropion HCl 300 mg 07/04/18 09:00 Wellbutrin Xl PO DAILY [facility] Calcium Carbonate/Glycine 500 mg 07/03/18 15:22 Tums PO TID PRN Heartburn Enoxaparin Sodium 40 mg 07/04/18 09:00 Lovenox SQ DAILY [facility] Insulin Aspart 0 unit 07/03/18 17:30 07/03/18 21:14 Novolog SQ 1 unit ACHS [facility] Administration Protocol Lamotrigine 150 mg 07/03/18 16:30 07/03/18 16:07 Lamictal PO 150 mg 0900,1600 [facility] Administration Pantoprazole Sodium 40 mg 07/03/18 15:30 07/03/18 16:00 Protonix PO 40 mg AC-BRKFST [facility] Administration Pravastatin Sodium 20 mg 07/04/18 09:00 Pravachol PO DAILY [facility] Ziprasidone 80 mg 07/03/18 16:00 07/03/18 16:53 Geodon PO 80 mg W/BRKFST [facility] Administration Intake and Output 07/03/18 07/04/18 07/04/18 22:59 06:59 14:59 Intake Total 240 Balance 240 Intake: Oral 240 Other: Voiding Method Toilet Toilet # Voids 1 1 07/04/18 05:23 07/04/18 05:23
[2018-07-04] MEDS ORDERED: DOBUTamine DRIP for NUC MED 500 MG in DEXTROSE/WATER 1 250ML.BAG IV ONE (10:50)
--- NOTE | 2018-07-04 11:03 | ECHOF ---
Referral Reason:cp MEASUREMENTS -------- HEIGHT: 165.1 cm WEIGHT: 82.6 kg BP: 134/80 RVIDd: 3.3 cm (< 3.3) IVSd: 1.2 cm (0.6 - 1.1) LVIDd: 4.4 cm (3.9 - 5.3) LVPWd: 1.0 cm (0.6 - 1.1) IVSs: 1.5 cm LVIDs: 3.3 cm LVPWs: 1.0 cm LAESV Index (A-L): 17.21 ml/m Ao Diam: 2.9 cm (2.0 - 3.7) AV Cusp: 1.6 cm (1.5 - 2.6) LA Diam: 3.6 cm (2.7 - 3.8) MV EXCURSION: 18.742 mm (> 18.000) MV EF SLOPE: 120 mm/s (70 - 150) EPSS: 1.3 cm MV E Vinayak: 0.53 m/s MV DecT: 244 ms MV A Vinayak: 0.69 m/s MV E/A Ratio: 0.77 RAP: 5.00 mmHg RVSP: 31.94 mmHg FINDINGS -------- Sinus rhythm. This was a technically adequate study. LV size, wall thickness and systolic function are normal, with an EF greater than 55%. The left saulo tricular size is normal. The right ventricle is normal in size. The left atrial size is normal. Normal LA size by volume 22+/-6 ml/m2. The right atrial size is normal. There is mild aortic valve sclerosis. There is no evidence of aortic regurgitation. Mild mitral annular calcification present. There is trace mitral regurgitation. Mild tricuspid regurgitation present. There is no evidence of pulmonary hypertension. The right v entricular systolic pressure, as measured by Doppler, is 31.94mmHg. There is no pulmonic regurgitation present. The aortic root size is normal. Normal inferior vena cava with normal inspiratory collapse consistent with estimated right atrial pre ssure of 5 mmHg. There is no pericardial effusion. CONCLUSIONS -------- 1. LV size, wall thickness and systolic function are normal, with an EF greater than 55%. 2. The left ventricular size is normal. 3. The right ventricle is normal in size. 4. The left atrial size is normal. 5. Normal LA size by volume 22+/-6 ml/m2. 6. The right atrial size is normal. 7. Interatrial Septum not well visulized. 8. There is mild aortic valve sclerosis. 9. Mild mitral annular calcification present. 10. There is trace mitral regurgitation. 11. Mild tricuspid regurgitation present. 12. There is no evidence of pulmonary hypertension. 13. The right ventricular systolic pressure, as measured by Doppler, is 31.94mmHg. 14. There is no pulmonic regurgitation present. 15. The aortic root size is normal. 16. Normal inferior vena cava with normal inspiratory collapse consistent with estimated right atrial pressure of 5 mmHg. 17. There is no pericardial effusion. CANCER REGISTRY MANAGER: Shyla Carter RDCS
[2018-07-04 11:28] LABS: Cholesterol 176 mg/dL (<200); HDL Cholesterol 77 mg/dL (40-60); LDL Cholesterol,Calculated 76 mg/dL (0-99); Triglycerides 116 mg/dL (<150)
[2018-07-04] MEDS ORDERED: ATROPINE SULFATE 0.1 MG/ML 10ML SYRINGE ONE (12:09)
[2018-07-04] MEDS: lamoTRIgine 100 MG TAB PO SCH (12:39)
[2018-07-04] MEDS: ZIPRASIDONE 80 MG CAP PO SCH (12:39)
[2018-07-04] MEDS: ASPIRIN 325 MG TAB PO SCH (12:39)
[2018-07-04] MEDS: PANTOPRAZOLE 40 MG TABLET PO SCH (12:39)
[2018-07-04 12:40] LABS: Glucose,Whole Blood 114 mg/dL (75-99)
[2018-07-04 12:45] VITALS: BP 114/77; PULSE 78; TEMP 98.4
--- NOTE | 2018-07-04 13:28 | ECHOS ---
STRESS ECHOCARDIOGRAM DATE OF SERVICE: 07/04/2018 INDICATIONS: Chest pain, shortness of breath. MEDICATIONS: BASELINE HEART RATE: 70 BASELINE BLOOD PRESSURE: 111/62 MAXIMUM HEART RATE: 135 MAXIMUM BLOOD PRESSURE: 145/55 85% MPHR: 138 100% MPHR: 162 METS: MAXIMUM STAGE REACHED: TOTAL EXERCISE TIME: CLINICAL INFORMATION: Dobutamine stress echocardiographic study was performed. Patient was given dobutamine infusion as well as atropine. Peak heart rate of 135 was achieved. Maximum blood pressure of 145/55 mmHg was noted. Resting EKG shows normal sinus rhythm with normal ND interval and QRS duration and normal ST-T waves. No ST-segment depression suggestive of ischemia was noted. Isolated PVCs were noted. The baseline echocardiographic images reveal a normal left ventricular chamber size with normal left ventricular systolic function. At the peak dose of dobutamine infusion, normal increase in the wall thickness and contractility was noted. FINAL IMPRESSION: This stress echocardiographic study is negative for stress-induced ischemia. EKG portion of the stress test is not suggestive of ischemia. MMODL / IJN: [id number] /
--- NOTE | 2018-07-04 14:15 | P.DS ---
Providers Date of admission: 07/03/18 11:36 Expected date of discharge: 07/04/18 Attending physician: Neto Warner Consults: 07/03/18 12:58 Consult Physician Routine Consulting Provider: Case Hicks Consult Reason/Comments: chest pain Do you want consulting provider notified?: Yes Placement Type Exists?: Yes Primary care physician: Neto Warner [facility] Course: Discharge diagnosis 1. Chest pain: Cardiac workup in progress. Check EKG, place patient on telemetry. Consult cardiology. Her cardiac enzymes first set of cardiac enzymes are negative. Last heart catheterization June 2017 reported normal coronary arteries. Chest x-ray which showed no acute cardiopulmonary process. D-dimer 0.42. 2-D echo completed showing EF greater than 55%. Dobutamine stress test completed and was negative for stress-induced ischemia. She has been cleared for discharge from cardiology standpoint 2. Concussion: 3 days ago patient hit the top of the right side of her head. Head CT completed showing no significant brain abnormality evident. Sinus disease 3. Acid reflux symptoms with heartburn and indigestion. Ruling out any cardiac causes. We'll place patient on Protonix and Tums. Amylase and lipase within normal limits 4. Urinary frequency check urinalysis with culture rule out UTI. Urinary analysis negative for urinary tract infection 5. Diabetes mellitus type 2 add sliding scale coverage hold metformin during hospitalization 6. Hyperlipidemia 7. hypertension 8. TIA history 9. anxiety and depression 10. Colon Cancer with bowel resection 11. Sinus disease. Will DC patient on Cleocin 150 3 times a day for 7 days Hospital course This is a 57-year-old female with a known past medical history of diabetes, hypertension, hyperlipidemia, TIA and depression. She presents to the office with complaints of chest pain. She was a direct admit from Dr. Warner's office. Per Dr. Warner the EKG in the office was normal. Patient is complaining of chest pressure in the center of the chest sternum area and epigastric area. She's also stating she's had some acid reflux heartburn symptoms. Patient repo rts symptoms have been ongoing over the last 3 days. Initially 3 days ago she went to get into her daughter's car and hit the top of her head on the right side. Patient reports that she was very dizzy had a headache for most of the day afterwards. Denies any loss of consciousness. Denies any new vision changes. Denies any numbness or tingling of the extremities. Per patient's he noted that she seemed to be off balance. Computed tomography scan of the brain has been ordered. Patient reports since hitting her head she just has not felt right and has been very nauseous and having chest pains. She's having urinary frequency. Denies any fever, chills, sweats, vomiting, bowel movement changes. Denies any burning with urination. Patient is been admitted to the observation floor. Cardiology is been placed on consult. Patient had a heart catheterization in June 2017 at that time reported normal coronary arteries On 07/04/2018 patient is alert and oriented 3. Patient is still complaining of mild headache but states improvement. Patient denies any chest pain. Patient underwent stress test. Showing negative for stress-induced ischemia. Head CT completed showing no significant brain abnormality evident. Did show sinus disease. Will discharge patient on Cleocin for 7 days. Patient to follow-up with PCP and cardiology services I performed an examination of the patient and discussed their management with the Nurse Practitioner. I have reviewed the Nurse Practitioner's notes and agree with the documented findings and plan of care Patient Condition at Discharge: Stable Plan - Discharge Summary Discharge Rx Participant: No New Discharge Prescriptions: New Clindamycin [Cleocin] 150 mg PO TID 7 Days #21 cap Continue Atenolol [Tenormin] 50 mg PO DAILY Pravastatin Sodium [Pravachol] 20 mg PO DAILY lamoTRIgine 150 mg PO BID Aspirin [Adult Low Dose Aspirin EC] 81 mg PO DAILY HYDROcodone/APAP 10-325MG [Gilliam 10-325] 1 tab PO Q6H PRN PRN Reason: Pain buPROPion XL [Wellbutrin XL] 300 mg PO DAILY metFORMIN HCL [Glucophage] 500 mg PO BID Baclofen 10 mg PO DAILY Ziprasidone [Geodon] 80 mg PO DAILY Discharge Medication List Aspirin [Adult Low Dose Aspirin EC] 81 mg PO DAILY 06/18/15 [History] Atenolol [Tenormin] 50 mg PO DAILY 06/18/15 [History] Pravastatin Sodium [Pravachol] 20 mg PO DAILY 06/18/15 [History] lamoTRIgine 150 mg PO BID 06/18/15 [History] HYDROcodone/APAP 10-325MG [Gilliam 10-325] 1 tab PO Q6H PRN 06/08/16 [History] buPROPion XL [Wellbutrin XL] 300 mg PO DAILY 06/08/16 [History] metFORMIN HCL [Glucophage] 500 mg PO BID 06/28/17 [History] Baclofen 10 mg PO DAILY 07/03/18 [History] Ziprasidone [Geodon] 80 mg PO DAILY 07/03/18 [History] Clindamycin [Cleocin] 150 mg PO TID 7 Days #21 cap 07/04/18 [Rx] Follow up Appointment(s)/Referral(s): Ky Duque MD [STAFF PHYSICIAN] - 2 Weeks Neto Warner MD [Primary Care Provider] - 1 Week Activity/Diet/Wound Care/Special Instructions: Activity as tolerated Diet heart healthy Discharge Disposition: HOME SELF-CARE
[2018-07-04] MEDS ORDERED: CLINDAMYCIN 150 MG CAP PO SCH (16:00)
== END 2018-07-04 15:35 | disposition home or self-care (01) ==
LOC: 1SOBS 11:36
PROVIDERS: ADMIT Internal Medicine; ATTEND Internal Medicine
DX: R07.89 Other chest pain (principal); S06.0X9A Concussion with loss of consciousness of unspecified duration, initial encounter; K21.9 Gastro-esophageal reflux disease without esophagitis; I10 Essential (primary) hypertension; E78.5 Hyperlipidemia, unspecified; E11.9 Type 2 diabetes mellitus without complications; R61 Generalized hyperhidrosis; R35.0 Frequency of micturition; F41.9 Anxiety disorder, unspecified; F32.9 Major depressive disorder, single episode, unspecified; Z79.82 Long term (current) use of aspirin; Z79.84 Long term (current) use of oral hypoglycemic drugs; Z79.1 Long term (current) use of non-steroidal anti-inflammatories (NSAID); Z79.899 Other long term (current) drug therapy; Z88.0 Allergy status to penicillin; Z88.2 Allergy status to sulfonamides; Z86.73 Personal history of transient ischemic attack (TIA), and cerebral infarction without residual deficits; Z90.49 Acquired absence of other specified parts of digestive tract; Z85.828 Personal history of other malignant neoplasm of skin; Z85.038 Personal history of other malignant neoplasm of large intestine; W22.8XXA Striking against or struck by other objects, initial encounter
CPT/HCPCS: 96372; 93306; 93351; 85379; 80061; 80053 ×2; 82150; 82550 ×2; 82553 ×2; 83690; 84484 ×2; 85025 ×2; 81003; 87086; 71046; 70450; G0378 ×2; G0379; J1250; J1650; J0461

== ENCOUNTER 2018-10-30 12:10 | Emergency (ER) | payer MEDICARE ==
[2018-10-30 12:19] VITALS: TEMP 97.9
[2018-10-30] MEDS ORDERED: SODIUM CHLORIDE 0.9% 1,000 ML IV STA ×2 (12:51)
[2018-10-30] MEDS ORDERED: ASPIRIN 81 MG PO STA (12:51)
--- NOTE | 2018-10-30 12:54 | ED ---
General Adult HPI - General Chief complaint: Back Pain/Injury Stated complaint: neck & back pain Time Seen by Provider: 10/30/18 12:23 Source: patient, RN notes reviewed, old records reviewed Mode of arrival: ambulatory Limitations: no limitations - History of Present Illness Initial comments: Patient is a 58-year-old female presents emergency department today for evaluation with complaints of neck and mid back pain starting 2 days ago. Patient reports that she initially thought she pulled a muscle in her neck and back. She states pain sometimes is worse with movement but has been a dull achy pain as well. Patient states that she has history of hypertension hyperlipidemia and diabetes. Patient states that she has been evaluated for her heart in the past within this year. Her meal room hand is Dr. Duque. Patient states that she has had no previous stents or heart attacks. Patient reports she was encouraged to come to ED by her daughters and . - Related Data Home Medications Medication Instructions Recorded Confirmed Atenolol [Tenormin] 50 mg PO DAILY 06/18/15 10/30/18 Pravastatin Sodium [Pravachol] 20 mg PO DAILY 06/18/15 10/30/18 lamoTRIgine 150 mg PO BID 06/18/15 10/30/18 HYDROcodone/APAP 10-325MG [[place] 1 tab PO Q6H PRN 06/08/16 10/30/18 10-325] buPROPion XL [Wellbutrin XL] 300 mg PO DAILY 06/08/16 10/30/18 Ziprasidone [Geodon] 40 mg PO DAILY 10/30/18 10/30/18 Allergies Allergy/AdvReac Type Severity Reaction Status Date / Time Penicillins Allergy Anaphylaxis Verified 10/30/18 12:31 Sulfa (Sulfonamide Allergy Anaphylaxis Verified 10/30/18 12:31 Antibiotics) Review of Systems ROS Statement: Those systems with pertinent positive or pertinent negative responses have been documented in the HPI. ROS Other: All systems not noted in ROS Statement are negative. 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 Alert and oriented 3. Patient appears in no significant distress. General: Well appearing, well nourished, in no distress. Oriented x 3, normal mood and affect . Ambulating without difficulty. Skin: Good turgor, no rash, unusual bruising or prominent lesions Hair: Normal texture and distribution. HEENT: Head: Normocephalic, atraumatic, no visible or palpable masses, depressions, or scaring. Eyes: Visual acuity intact, conjunctiva clear, sclera non-icteric, EOM intact, PERRL. Ears: EACs clear, TMs translucent & cone of light visualized. hearing intact. Nose: No external lesions, mucosa non-inflamed, septum and turbinates normal Mouth: Mucous membranes moist, no mucosal lesions. Teeth/Gums: No obvious caries or periodontal disease. No gingival inflammation or significant resorption. Pharynx: Mucosa non-inflamed, no tonsillar hypertrophy or exudate Neck: Supple, without lesions, bruits, or adenopathy, thyroid non-enlarged and non-tender Heart: No cardiomegaly or thrills; regular rate and rhythm, no murmur or gallop Lungs: Clear to auscultation and percussion Abdomen: Bowel sounds normal, no tenderness, organomegaly, masses, or hernia Back: Spine normal without deformity or tenderness, no CVA tenderness Extremities: No amputations or deformities, cyanosis, edema or varicosities, peripheral pulses intact Musculoskeletal: Normal gait and station. No misalignment, asymmetry, crepitation, defects, tenderness, masses, effusions, decreased range of motion, instability, atrophy or abnormal strength or tone in the head, neck, spine, ribs, pelvis or extremities. Neurologic: CN 2-12 normal. Sensation to pain, touch, and proprioception normal. DTRs normal in upper and lower extremities. No pathologic reflexes. Psychiatric: Oriented X3, intact recent and remote memory, judgment and insight, normal mood and affect. Limitations: no limitations Course Vital Signs 10/30/18 10/30/18 12:17 13:00 Temperature 97.9 F Pulse Rate 67 65 Respiratory 18 14 Rate Blood Pressure 150/91 106/88 O2 Sat by Pulse 99 97 Oximetry Medical Decision Making - Medical Decision Making 58-year-old female presents with mid back pain , some neck pain. She presents with atypical chest pain symptoms but denies any chest pain. Patient family is concerned this could be related to her heart. This time patient's EKG shows no changes negative troponin test. She's been having her symptoms for the past 2 days. I reviewed patient's previous cardiac cath which were all reviewed to be normal for the past 6 months as well as last stress echo. Patient was informed of these results as well as normal chest x-ray. Patient does state it seems angelique t she was slept on her neck and this could be muscular skeletal. I discussed this time with normal EKG labs and last cardiac cath. Normal unlikely to be critically a component of her pain. I discussed with Dr. Ptael. I discussed that we can discharge the Patient with prompt follow up with her primary care physician but she understands that Regina had any actual chest pain or heaviness to return for reevaluation. Patient is agreeable to treatment plan will comply. Return parameters were discussed. - Lab Data Result diagrams: 10/30/18 12:55 10/30/18 12:55 Lab Results 10/30/18 10/30/18 10/30/18 Range/Units 12:55 12:55 12:55 WBC 9.7 (3.8-10.6) k/uL RBC 3.99 (3.80-5.40) m/uL Hgb 12.3 (11.4-16.0) gm/dL Hct 36.4 (34.0-46.0) % MCV 91.2 (80.0-100.0) fL MCH 30.8 (25.0-35.0) pg MCHC 33.7 (31.0-37.0) g/dL RDW 13.4 (11.5-15.5) % Plt Count 324 (150-450) k/uL Neutrophils % 58 % Lymphocytes % 30 % Monocytes % 4 % Eosinophils % 5 % Basophils % 1 % Neutrophils # 5.6 (1.3-7.7) k/uL Lymphocytes # 2.9 (1.0-4.8) k/uL Monocytes # 0.4 (0-1.0) k/uL Eosinophils # 0.5 (0-0.7) k/uL Basophils # 0.1 (0-0.2) k/uL PT (9.0-12.0) sec INR (<1.2) APTT (22.0-30.0) sec Sodium 135 L (137-145) mmol/L Potassium 5.0 (3.5-5.1) mmol/L Chloride 97 L (98-107) mmol/L Carbon Dioxide 26 (22-30) mmol/L Anion Gap 12 mmol/L BUN 19 H (7-17) mg/dL Creatinine 0.86 (0.52-1.04) mg/dL Est GFR (CKD-EPI)AfAm 86 (>60 ml/min/1.73 sqM) Est GFR (CKD-EPI)NonAf 75 (>60 ml/min/1.73 sqM) Glucose 114 H (74-99) mg/dL Calcium 9.5 (8.4-10.2) mg/dL Magnesium 2.1 (1.6-2.3) mg/dL Total Bilirubin 0.5 (0.2-1.3) mg/dL AST 25 (14-36) U/L ALT 25 (9-52) U/L Alkaline Phosphatase 88 (38-126) U/L Troponin I (0.000-0.034) ng/mL NT-Pro-B Natriuret Pep 208 pg/mL Total Protein 7.5 (6.3-8.2) g/dL Albumin 4.5 (3.5-5.0) g/dL 10/30/18 10/30/18 Range/Units 12:55 12:55 WBC (3.8-10.6) k/uL RBC (3.80-5.40) m/uL Hgb (11.4-16.0) gm/dL Hct (34.0-46.0) % MCV (80.0-100.0) fL MCH (25.0-35.0) pg MCHC (31.0-37.0) g/dL RDW (11.5-15.5) % Plt Count (150-450) k/uL Neutrophils % % Lymphocytes % % Monocytes % % Eosinophils % % Basophils % % Neutrophils # (1.3-7.7) k/uL Lymphocytes # (1.0-4.8) k/uL Monocytes # (0-1.0) k/uL Eosinophils # (0-0.7) k/uL Basophils # (0-0.2) k/uL PT 9.7 (9.0-12.0) sec INR 0.9 (<1.2) APTT 22.6 (22.0-30.0) sec Sodium (137-145) mmol/L Potassium (3.5-5.1) mmol/L Chloride (98-107) mmol/L Carbon Dioxide (22-30) mmol/L Anion Gap mmol/L BUN (7-17) mg/dL Creatinine (0.52-1.04) mg/dL Est GFR (CKD-EPI)AfAm (>60 ml/min/1.73 sqM) Est GFR (CKD-EPI)NonAf (>60 ml/min/1.73 sqM) Glucose (74-99) mg/dL Calcium (8.4-10.2) mg/dL Magnesium (1.6-2.3) mg/dL Total Bilirubin (0.2-1.3) mg/dL AST (14-36) U/L ALT (9-52) U/L Alkaline Phosphatase (38-126) U/L Troponin I <0.012 (0.000-0.034) ng/mL NT-Pro-B Natriuret Pep pg/mL Total Protein (6.3-8.2) g/dL Albumin (3.5-5.0) g/dL 10/30/18 13:49 EKG shows normal sinus rhythm and normal EKG noted. Ventricular rate of 65 bpm. Pulse 174 ms. QRS duration is 86 ms. QT QTc is 370/384 ms. No evidence of ST elevation or T-wave inversion. - Radiology Data Radiology results: report reviewed S x-rays negative for any acute cart upon her process. No change from prior. Disposition Clinical Impression: Neck pain, Back pain Disposition: HOME SELF-CARE Condition: Good Instructions (If sedation given, give patient instructions): Neck Pain (ED) Additional Instructions: Please follow up with family doctor if symptoms have not improved over the next two days. Please return to the emergency room if your symptoms increase or worsen or for any other concerns. Is patient prescribed a controlled substance at d/c from ED?: No Referrals: Neto Warner MD [Primary Care Provider] - 1-2 days Time of Disposition: 15:00
[2018-10-30 13:09] LABS: Basophils # (A) 0.1 k/uL (0-0.2); Basophils % (A) 1 %; Eosinophils # (A) 0.5 k/uL (0-0.7); Eosinophils % (A) 5 %; HCT 36.4 % (34.0-46.0); HGB 12.3 gm/dL (11.4-16.0); Lymphocytes # (A) 2.9 k/uL (1.0-4.8); Lymphocytes % (A) 30 %; MCH 30.8 pg (25.0-35.0); MCHC 33.7 g/dL (31.0-37.0); MCV 91.2 fL (80.0-100.0); Mean Platelet Volume 6.6; Monocytes # (A) 0.4 k/uL (0-1.0); Monocytes % (A) 4 %; Neutrophils # (A) 5.6 k/uL (1.3-7.7); Neutrophils % (A) 58 %; Platelet Count 324 k/uL (150-450); RBC 3.99 m/uL (3.80-5.40); RDW 13.4 % (11.5-15.5); WBC 9.7 k/uL (3.8-10.6)
[2018-10-30 13:16] LABS: INR 0.9 (<1.2); Partial Thromboplastin Time 22.6 sec (22.0-30.0); Prothrombin Time 9.7 sec (9.0-12.0)
--- NOTE | 2018-10-30 13:19 | XR ---
EXAMINATION TYPE: XR chest 2V DATE OF EXAM: 10/30/2018 COMPARISON: Chest x-ray July 03, 2018. HISTORY: Chest pain. TECHNIQUE: Frontal and lateral views of the chest are obtained. FINDINGS: Overlying EKG leads are redemonstrated. There is no focal air space opacity, pleural effus ion, or pneumothorax seen. The cardiac silhouette size is within normal limits. The osseous struct ures are intact. Cholecystectomy clips are noted on lateral view. IMPRESSION: No acute cardiopulmonary process. No significant change from prior.
[2018-10-30 13:22] LABS: Albumin 4.5 g/dL (3.5-5.0); Calcium 9.5 mg/dL (8.4-10.2); Magnesium 2.1 mg/dL (1.6-2.3); Total Bilirubin 0.5 mg/dL (0.2-1.3); Total Protein 7.5 g/dL (6.3-8.2)
[2018-10-30 15:20] VITALS: BP 159/89; PULSE 66; RESP 16
== END 2018-10-30 15:24 | disposition home or self-care (01) ==
LOC: EC 12:10
DX: M54.2 Cervicalgia (principal); M54.9 Dorsalgia, unspecified; R07.89 Other chest pain; E78.5 Hyperlipidemia, unspecified; I10 Essential (primary) hypertension; F32.9 Major depressive disorder, single episode, unspecified; F41.9 Anxiety disorder, unspecified; Z88.0 Allergy status to penicillin; Z88.2 Allergy status to sulfonamides; Z79.899 Other long term (current) drug therapy; Z85.038 Personal history of other malignant neoplasm of large intestine; Z85.828 Personal history of other malignant neoplasm of skin; Z90.49 Acquired absence of other specified parts of digestive tract
CPT/HCPCS: 36415; 71046; 80053; 83735; 83880; 84484; 85025; 85610; 85730; 93005; 96360; 96361; 99284

== ENCOUNTER → 2018-11-03 | Outpatient (CLI) | payer MEDICARE ==
--- NOTE | 2018-11-03 10:44 | US ---
EXAMINATION TYPE: US abdomen complete DATE OF EXAM: 11/03/2018 COMPARISON: NONE CLINICAL HISTORY: R11.11 Vomiting w/o nausea,R68.81 Early satiety. Loss of appetite, nausea and vomit ing, cholecystectomy EXAM MEASUREMENTS: Liver Length: 15.8 cm Gallbladder Wall: Surgically absent CBD: 0.3 cm Spleen: 8.2 cm Right Kidney: 10.3 x 4.7 x 5.0 cm Left Kidney: 10.9 x 4.9 x 4.1 cm Pancreas: Tail obscured by overlying bowel gas Liver: appears within normal limits on some images and slightly hyperechoic and few images Gallbladder: no evidence of stones Evidence for sonographic Rubi's sign: no CBD: appears wnl Spleen: wnl Right Kidney: no evidence of hydronephrosis or mass Left Kidney: no evidence of hydronephrosis or mass Upper IVC: wnl Abd Aorta: wnl The intrahepatic portion of the IVC and proximal abdominal aorta are within normal limits. There is no evidence of cholelithiasis. Common bile duct is unremarkable. The visualized portions of the caraballo creas are homogenous. The spleen is unremarkable. Kidneys are symmetric and free of hydronephrosis. No renal lesions are seen. IMPRESSION: No sonographic evidence of cholelithiasis nor acute cholecystitis. On few images the live r is hyperechoic however on other images of the liver appears within normal limits in echogenicity. T herefore correlation with serum laboratory values is recommended to exclude very early hepatic steato sis.
== END | disposition home or self-care (01) ==
LOC: RADUSWWP 09:19
PROVIDERS: ATTEND Internal Medicine
DX: R11.11 Vomiting without nausea (principal)
CPT/HCPCS: 76700

== ENCOUNTER → 2020-04-04 | Outpatient (CLI) | payer MEDICARE ==
--- NOTE | 2020-04-04 11:52 | XR ---
EXAMINATION TYPE: XR wrist complete LT, XR hand complete LT DATE OF EXAM: 04/04/2020 CLINICAL HISTORY: pain TECHNIQUE: Frontal, lateral and oblique images of the left wrist are obtained. COMPARISON: None. FINDINGS: There is no acute fracture/dislocation evident. The joint spaces appear within normal mast its. The overlying soft tissue appears unremarkable. IMPRESSION: There is no acute fracture or dislocation seen. ICD 10 NO FRACTURE, INITIAL EVALUATION
== END | disposition home or self-care (01) ==
LOC: RADXRMAIN 11:13
PROVIDERS: ATTEND Internal Medicine
DX: M79.662 Pain in left lower leg (principal); M25.532 Pain in left wrist

== ENCOUNTER 2020-04-22 07:31 | Day surgery (SDC) | payer MEDICARE ==
[2020-04-17 10:41] VITALS: BMI 28.4
[~2020-04-22 07:31] MED LIST changes: -ALPRAZolam 0.25 MG TAB PO PRN; -ALPRAZolam 0.5 MG TAB PO PRN; -ASPIRIN 325 MG TAB PO STA; -ASPIRIN 81 MG PO SCH; -ATENOLOL 50 MG TAB PO SCH; -ATORVASTATIN 80 MG TAB PO STA; -FOLIC PO SCH; -HEPARIN SODIUM 1,000 UN/ML (10ML VL) IV ONE; -HEPARIN SODIUM 1,000 UN/ML (10ML VL) ONE; -HYDROcodone/APAP 10-325MG 1 EACH TAB PO PRN; -IOPAMIDOL-370 125ML BTL INJ ONE; -IRON PO SCH; -IV FLUID CONTINUATION 900 ML IV ONE; +LACTATED RINGERS 1,000 ML IV SCH; -LAMOTRIGINE 150 MG PO SCH; -LIDOCAINE 2% INJ 20 MG/ML (20 ML MDV) ONE; -LUTEIN PO SCH; -MIDAZOLAM 2 MG/2 ML VIAL IV ONE; -MIDAZOLAM 2 MG/2 ML VIAL ONE; -MULTIVIT MIN PO SCH; -NITROGLYCERIN SL TABS 0.4 MG TAB SUBLINGUAL PRN; -PRAVASTATIN SODIUM 20 MG TAB PO SCH; -RX INFO: IV CONTRAST WAS GIVEN 1 EACH MISC MISCELLANE PRN; -SODIUM CHLORIDE 0.9% 1,000 ML IV SCH; -SODIUM CHLORIDE 0.9% 1,000 ML in EMPTY BAG 1 BAG IV ONE; -VERAPAMIL 2.5 MG/ML 2 ML AMP ONE; -ZIPRASIDONE 80 MG CAP PO SCH; -[UNRECOGNIZED DRUG - OTHER] PO SCH; -buPROPion XL 300 MG TAB.ER.24H PO SCH; -diphenhydrAMINE 50 MG/ML 1 ML VIAL IVP ONE; -diphenhydrAMINE 50 MG/ML 1 ML VIAL ONE; -fentaNYL (PF) 50 MCG/ML 2 ML AMP IVP ONE; -fentaNYL (PF) 50 MCG/ML 2 ML AMP ONE
[2020-04-22 07:56] VITALS: TEMP 97.3
[2020-04-22] MEDS ORDERED: LIDOCAINE 1% (10MG/ML) FOR IV START INTRADERMA ONE (08:00)
[2020-04-22] MEDS ORDERED: MIDAZOLAM 2 MG/2 ML VIAL ONE (08:03)
[2020-04-22] MEDS ORDERED: PROPOFOL 10 MG/ML 20 ML VIAL IV ONE (08:03)
--- NOTE | 2020-04-22 08:08 | P.GSHP ---
History of Present Illness H&P Date: 04/22/20 Chief Complaint: Change in bowel habits, history of colon cancer Patient here today for colonoscopy. Lately has had increasing constipation and some weight loss. Has a history of personal history of colon cancer in a left- sided polyps in the past. No rectal bleeding. 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, colon ca with bowel resection, History of Any Multi-Drug Resistant Organisms: None Reported Past Surgical History: Bowel Resection, Cholecystectomy, Orthopedic Surgery, Tonsillectomy Additional Past Surgical History / Comment(s): bilat knee arthroscopy, left foot sx, Past Anesthesia/Blood Transfusion Reactions: Postoperative Nausea & Vomiting (PONV) Smoking Status: Never smoker - Past Family History Mother Family Medical History: No Reported History Medications and Allergies Home Medications Medication Instructions Recorded Confirmed Type Pravastatin Sodium [Pravachol] 20 mg PO HS 06/18/15 04/22/20 History atenoloL [Tenormin] 50 mg PO QAM 06/18/15 04/22/20 History lamoTRIgine 150 mg PO BID 06/18/15 04/22/20 History HYDROcodone/APAP 10-325MG [[place] 1 tab PO Q6H PRN 06/08/16 04/22/20 History 10-325] buPROPion XL [Wellbutrin XL] 300 mg PO QAM 06/08/16 04/22/20 History Aspirin [Adult Low Dose Aspirin EC] 81 mg PO DAILY 04/17/20 04/22/20 History FLUoxetine HCL [PROzac] 10 mg PO QAM 04/17/20 04/22/20 History traZODone HCL 100 mg PO HS 04/17/20 04/22/20 History Allergies Allergy/AdvReac Type Severity Reaction Status Date / Time bee venom protein (honey bee) Allergy Anaphylaxis Verified 04/22/20 07:52 Penicillins Allergy Anaphylaxis Verified 04/22/20 07:52 Sulfa (Sulfonamide Allergy Anaphylaxis Verified 04/22/20 07:52 Antibiotics) Surgical - Exam Vital Signs Temp Pulse Resp BP Pulse Ox 97.3 F L 67 16 155/82 98 04/22/20 07:48 04/22/20 07:48 04/22/20 07:48 04/22/20 07:48 04/22/20 07:48 Physical exam: General: Well-developed, well-nourished HEENT: Normocephalic, sclerae nonicteric Abdomen: Nontender, nondistended Extremities: No edema Neuro: Alert and oriented Assessment and Plan (1) Change in bowel habits Narrative/Plan: Will proceed with colonoscopy Current Visit: Yes Status: Acute Code(s): R19.4 - CHANGE IN BOWEL HABIT SNOMED Code(s): 874468459
[2020-04-22 08:09] LABS: Glucose,Whole Blood 127 mg/dL (75-99)
--- NOTE | 2020-04-22 08:19 | P.PCN ---
Date of Procedure: 04/22/20 Procedure(s) Performed: PREOPERATIVE DIAGNOSIS: Change in bowel habits, history of colon cancer POSTOPERATIVE DIAGNOSIS: Transverse colon polyp PROCEDURE: Colonoscopy with snare polypectomy ANESTHESIA: MAC SURGEON: Piotr Aguilar M.D. SPECIMENS: polyp ENDOSCOPIC PROCEDURE: The patient was placed on the endoscopy table in the left decubitus position. The Olympus colonoscope was inserted into the anus and passed under direct visualization to the base of the cecum. The appendiceal orifice was visualized. From that point the scope was slowly withdrawn inspecting all surfaces carefully. There were no neoplastic inflammatory or polypoid lesions throughout the cecum or ascending colon. In the transverse colon a small polyp was seen and removed using the snare with cautery technique. I could not visualize a definite site of left colonic anastomosis. The sigmoid and rectum appeared normal. There is no visible diverticulosis. Digital rectal examination was normal. The patient was taken to the recovery room in stable condition per anesthesia guidelines. RECOMMENDATIONS: Await biopsy results. Follow-up colonoscopy 5 years.
[2020-04-22 08:40] VITALS: BP 117/77; PULSE 61; RESP 16
== END 2020-04-22 09:03 | disposition home or self-care (01) ==
LOC: ORWHC2ENDO 07:31
PROVIDERS: ATTEND Surgery
DX: D12.3 Benign neoplasm of transverse colon (principal); Z85.038 Personal history of other malignant neoplasm of large intestine; E11.9 Type 2 diabetes mellitus without complications; E78.5 Hyperlipidemia, unspecified; I10 Essential (primary) hypertension; Z85.828 Personal history of other malignant neoplasm of skin; Z90.49 Acquired absence of other specified parts of digestive tract; Z98.890 Other specified postprocedural states; Z90.89 Acquired absence of other organs; Z79.899 Other long term (current) drug therapy; Z79.82 Long term (current) use of aspirin; Z88.0 Allergy status to penicillin; Z88.2 Allergy status to sulfonamides; Z91.030 Bee allergy status; F32.9 Major depressive disorder, single episode, unspecified
CPT/HCPCS: 88305; 45385; J2250; J2704

== ENCOUNTER → 2020-06-04 | Outpatient (CLI) | payer MEDICARE ==
--- NOTE | 2020-06-04 16:40 | US ---
EXAMINATION TYPE: US venous doppler duplex LE RT DATE OF EXAM: 06/04/2020 4:26 PM COMPARISON: NONE CLINICAL HISTORY: M79.661 Pain in right lower limb; R22 Swelling. knee pain, no h/o dvt SIDE PERFORMED: Right TECHNIQUE: The lower extremity deep venous system is examined utilizing real time linear array sonog odell with graded compression, doppler sonography and color-flow sonography. VESSELS IMAGED: Common Femoral Vein Deep Femoral Vein Greater Saphenous Vein * Femoral Vein Popliteal Vein Small Saphenous Vein * Proximal Calf Veins (* superficial vessels) Right Leg: Negative for DVT2.9cm popiteal cyst seen anterior to vessels IMPRESSION: No evidence of deep vein thrombosis in the right leg.
== END | disposition home or self-care (01) ==
LOC: RADUSWWP 16:10
PROVIDERS: ATTEND Internal Medicine
DX: R22.41 Localized swelling, mass and lump, right lower limb (principal); Z88.0 Allergy status to penicillin; Z88.2 Allergy status to sulfonamides; Z91.030 Bee allergy status

== ENCOUNTER 2020-10-20 16:34 | Emergency (ER) | payer MEDICARE, OTHER ==
[2020-10-20 17:45] VITALS: TEMP 98.3
[2020-10-20] MEDS ORDERED: SODIUM CHLORIDE 0.9% 1,000 ML IV ONE (20:43)
[2020-10-20] MEDS ORDERED: ONDANSETRON 4 MG/2 ML VIAL IVP STA (20:43)
[2020-10-20] MEDS ORDERED: KETOROLAC 15 MG/ML 1 ML VIAL IVP STA (20:43)
[2020-10-20] MEDS ORDERED: SODIUM CHLORIDE 0.9% 500 ML 500 ML IV ONE (20:43)
--- NOTE | 2020-10-20 20:52 | ED ---
General Adult HPI - General Source: patient, RN notes reviewed Mode of arrival: ambulatory Limitations: no limitations <Alan Ordaz - Last Filed: 10/20/20 22:48> <Crys Lazar - Last Filed: 10/25/20 14:39> - General Chief complaint: Recheck/Abnormal Lab/Rx Stated complaint: Med Reaction/Arm Pain/Dizziness Time Seen by Provider: 10/20/20 20:17 - History of Present Illness Initial comments: This is a 60-year-old female sent emergency Department chief complaint of does not feeling well. She states she did urinary frequency dysuria, diarrhea abdominal cramping started Tuesday and Tuesday continues today. Patient states she just feels fatigued, more now now no chest pain or shortness of breath she did state that she had COVID-19 booster vaccine on Tuesday states that she is some left arm pain and swelling social. Patient denies any sick contacts denies any headache dizziness neck pain. (Alan Ordaz) - Related Data Home Medications Medication Instructions Recorded Confirmed atenoloL [Tenormin] 50 mg PO DAILY 06/18/15 07/31/20 HYDROcodone/APAP 10-325MG [Modena 1 tab PO Q6H PRN 06/08/16 07/31/20 10-325] buPROPion XL [Wellbutrin XL] 300 mg PO DAILY 06/08/16 07/31/20 Aspirin [Adult Low Dose Aspirin EC] 81 mg PO DAILY 04/17/20 07/31/20 Baclofen [Lioresal] 10 mg PO TID PRN 07/31/20 07/31/20 Ergocalciferol [Vitamin D2 (1250 1,250 mcg PO FLOREZ 07/31/20 07/31/20 Mcg = 15246 Iu)] Omeprazole 20 mg PO BID 07/31/20 07/31/20 hydrOXYzine pamoate [Vistaril] 25 mg PO DAILY PRN 07/31/20 07/31/20 Previous Rx's Medication Instructions Recorded Atorvastatin [Lipitor] 40 mg PO DAILY tab 08/03/20 Mirtazapine [Remeron] 15 mg PO HS tab 08/03/20 Sertraline [Zoloft] 50 mg PO DAILY tab 08/03/20 lamoTRIgine [LaMICtal] 100 mg PO BID tab 08/03/20 Allergies Allergy/AdvReac Type Severity Reaction Status Date / Time bee venom protein (honey bee) Allergy Anaphylaxis Verified 10/20/20 17:45 Penicillins Allergy Anaphylaxis Verified 10/20/20 17:45 Sulfa (Sulfonamide Allergy Anaphylaxis Verified 10/20/20 17:45 Antibiotics) Review of Systems ROS Other: All systems not noted in ROS Statement are negative. <SushmaAlan Donte - Last Filed: 10/20/20 22:48> ROS Other: All systems not noted in ROS Statement are negative. <Crys Lazar - Last Filed: 10/25/20 14:39> ROS Statement: Those systems with pertinent positive or pertinent negative responses have been documented in the HPI. 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 History of Any Multi-Drug Resistant Organisms: None Reported Past Surgical History: Bowel Resection, Cholecystectomy, Heart Catheterization, Orthopedic Surgery, Tonsillectomy, Tubal Ligation Additional Past Surgical History / Comment(s): Skin cancer removal, bilateral knee arthroscopies, L foot surgery d/t "too many bones", colonoscopy/polypectomy, 2018 cardiac cath-normal. Past Anesthesia/Blood Transfusion Reactions: Postoperative Nausea & Vomiting (PONV) Additional Past Anesthesia/Blood Transfusion Reaction / Comment(s): Pt has severe clausterphobia. Past Psychological History: Anxiety, Depression Smoking Status: Never smoker Past Alcohol Use History: None Reported Past Drug Use History: None Reported - Past Family History Mother Family Medical History: No Reported History Additional Family Medical History / Comment(s): Mother is healthy. She is living. Father Family Medical History: Cancer Additional Family Medical History / Comment(s): Father from colon cancer with mets. <Alan Ordaz - Last Filed: 10/20/20 22:48> General Exam Limitations: no limitations General appearance: alert, in no apparent distress Head exam: Present: atraumatic, normocephalic, normal inspection Eye exam: Present: normal appearance, PERRL, EOMI. Absent: scleral icterus, conjunctival injection, periorbital swelling ENT exam: Present: normal exam, normal oropharynx, mucous membranes moist Neck exam: Present: normal inspection, full ROM. Absent: tenderness, meningismus, lymphadenopathy Respiratory exam: Present: normal lung sounds bilaterally. Absent: respiratory distress, wheezes, rales, rhonchi, stridor Cardiovascular Exam: Present: regular rate, normal rhythm, normal heart sounds. Absent: systolic murmur, diastolic murmur, rubs, gallop, clicks GI/Abdominal exam: Present: soft, tenderness, normal bowel sounds. Absent: distended, guarding, rebound, rigid Back exam: Absent: CVA tenderness (R), CVA tenderness (L) Neurological exam: Present: alert Skin exam: Present: warm, dry, intact, normal color. Absent: rash <Alan Ordaz - Last Filed: 10/20/20 22:48> Course Vital Signs 10/20/20 10/20/20 17:41 23:13 Temperature 98.3 F 98.3 F Pulse Rate 62 76 Respiratory 18 16 Rate Blood Pressure 131/74 135/72 O2 Sat by Pulse 94 L 97 Oximetry Medical Decision Making - Lab Data Result diagrams: 10/20/20 22:00 10/20/20 22:00 <Alan Ordaz - Last Filed: 10/20/20 22:48> - Lab Data Result diagrams: 10/20/20 22:00 10/20/20 22:00 <Crys Lazar - Last Filed: 10/25/20 14:39> - Medical Decision Making 60-year-old female presented for possible reaction to covid19 Booster vaccine. Patient had lab work urinalysis was hydrated feels greatly improved will be discharged in stable condition return parameters were discussed. (Alan Ordaz) I was available for consultation in the emergency department. The history and physical exam were done by the midlevel provider. I was consulted for this patients care. I reviewed the case with the midlevel provider and based on their presentation of the patient, I agree with the assessment, medical decision making and plan of care as documented. Chart was dictated using [employer] dictation software. Attempts were made to correct any dictation errors however some typographical errors may persist. Patient was seen during a national state of emergency due to the Covid-19 pandemic. (Crys Lazar) - Lab Data Lab Results 10/20/20 10/20/20 10/20/20 Range/Units 21:42 22:00 22:00 WBC 8.9 (3.8-10.6) k/uL RBC 3.80 (3.80-5.40) m/uL Hgb 12.0 (11.4-16.0) gm/dL Hct 35.4 (34.0-46.0) % MCV 93.2 (80.0-100.0) fL MCH 31.7 (25.0-35.0) pg MCHC 34.0 (31.0-37.0) g/dL RDW 13.2 (11.5-15.5) % Plt Count 240 (150-450) k/uL MPV 7.9 Neutrophils % 54 % Lymphocytes % 28 % Monocytes % 5 % Eosinophils % 9 % Basophils % 1 % Neutrophils # 4.9 (1.3-7.7) k/uL Lymphocytes # 2.5 (1.0-4.8) k/uL Monocytes # 0.5 (0-1.0) k/uL Eosinophils # 0.8 H (0-0.7) k/uL Basophils # 0.1 (0-0.2) k/uL Sodium 134 L (137-145) mmol/L Potassium 4.2 (3.5-5.1) mmol/L Chloride 97 L (98-107) mmol/L Carbon Dioxide 28 (22-30) mmol/L Anion Gap 9 mmol/L BUN 13 (7-17) mg/dL Creatinine 0.74 (0.52-1.04) mg/dL Est GFR (CKD-EPI)AfAm >90 (>60 ml/min/1.73 sqM) Est GFR (CKD-EPI)NonAf 88 (>60 ml/min/1.73 sqM) Glucose 109 H (74-99) mg/dL Plasma Lactic Acid Kwabena (0.7-2.0) mmol/L Calcium 9.3 (8.4-10.2) mg/dL Magnesium 2.1 (1.6-2.3) mg/dL Total Bilirubin 0.3 (0.2-1.3) mg/dL AST 30 (14-36) U/L ALT 38 H (4-34) U/L Alkaline Phosphatase 134 H (38-126) U/L Total Protein 7.2 (6.3-8.2) g/dL Albumin 4.3 (3.5-5.0) g/dL Urine Color Yellow Urine Appearance Clear (Clear) Urine pH 5.5 (5.0-8.0) Ur Specific Naselle 1.022 (1.001-1.035) Urine Protein Negative (Negative) Urine Glucose (UA) Negative (Negative) Urine Ketones Negative (Negative) Urine Blood Negative (Negative) Urine Nitrite Negative (Negative) Urine Bilirubin Negative (Negative) Urine Urobilinogen <2.0 (<2.0) mg/dL Ur Leukocyte Esterase Small H (Negative) Urine RBC 1 (0-5) /hpf Urine WBC 4 (0-5) /hpf Ur Squamous Epith Cells 1 (0-4) /hpf Urine Mucus Few H (None) /hpf 10/20/20 Range/Units 22:00 WBC (3.8-10.6) k/uL RBC (3.80-5.40) m/uL Hgb (11.4-16.0) gm/dL Hct (34.0-46.0) % MCV (80.0-100.0) fL MCH (25.0-35.0) pg MCHC (31.0-37.0) g/dL RDW (11.5-15.5) % Plt Count (150-450) k/uL MPV Neutrophils % % Lymphocytes % % Monocytes % % Eosinophils % % Basophils % % Neutrophils # (1.3-7.7) k/uL Lymphocytes # (1.0-4.8) k/uL Monocytes # (0-1.0) k/uL Eosinophils # (0-0.7) k/uL Basophils # (0-0.2) k/uL Sodium (137-145) mmol/L Potassium (3.5-5.1) mmol/L Chloride (98-107) mmol/L Carbon Dioxide (22-30) mmol/L Anion Gap mmol/L BUN (7-17) mg/dL Creatinine (0.52-1.04) mg/dL Est GFR (CKD-EPI)AfAm (>60 ml/min/1.73 sqM) Est GFR (CKD-EPI)NonAf (>60 ml/min/1.73 sqM) Glucose (74-99) mg/dL Plasma Lactic Acid Kwabena 0.7 (0.7-2.0) mmol/L Calcium (8.4-10.2) mg/dL Magnesium (1.6-2.3) mg/dL Total Bilirubin (0.2-1.3) mg/dL AST (14-36) U/L ALT (4-34) U/L Alkaline Phosphatase (38-126) U/L Total Protein (6.3-8.2) g/dL Albumin (3.5-5.0) g/dL Urine Color Urine Appearance (Clear) Urine pH (5.0-8.0) Ur Specific [place] (1.001-1.035) Urine Protein (Negative) Urine Glucose (UA) (Negative) Urine Ketones (Negative) Urine Blood (Negative) Urine Nitrite (Negative) Urine Bilirubin (Negative) Urine Urobilinogen (<2.0) mg/dL Ur Leukocyte Esterase (Negative) Urine RBC (0-5) /hpf Urine WBC (0-5) /hpf Ur Squamous Epith Cells (0-4) /hpf Urine Mucus (None) /hpf Disposition Is patient prescribed a controlled substance at d/c from ED?: No Time of Disposition: 22:50 <Alan Ordaz - Last Filed: 10/20/20 22:48> <Crys Lazar - Last Filed: 10/25/20 14:39> Clinical Impression: Medication adverse effect, Abdominal pain Disposition: HOME SELF-CARE Condition: Stable Instructions (If sedation given, give patient instructions): Abdominal Pain (ED) Additional Instructions: Please return to the Emergency Department if symptoms worsen or any other concerns. Referrals: Neto Warner MD [Primary Care Provider] - 1-2 days
[2020-10-20 21:53] LABS: Appearance,Urine Clear (Clear); Bilirubin,Urine Negative (Negative); Blood,Urine Negative (Negative); Color,Urine Yellow; Glucose,Urine (UA) Negative (Negative); Ketones,Urine Negative (Negative); Leukocyte Esterase,Urine Small (Negative); Mucus,Urine Few /hpf; Nitrite,Urine Negative (Negative); PH, Urine 5.5 (5.0-8.0); Protein,Urine Negative (Negative); RBC,Urine 1 /hpf (0-5); Specific Gravity,Urine 1.022 (1.001-1.035); Squamous Epithelial Cell,Urine 1 /hpf (0-4); Urobilinogen,Urine <2.0 mg/dL (<2.0); WBC,Urine 4 /hpf (0-5)
[2020-10-20 22:22] LABS: Basophils # (A) 0.1 k/uL (0-0.2); Basophils % (A) 1 %; Eosinophils # (A) 0.8 k/uL (0-0.7); Eosinophils % (A) 9 %; HCT 35.4 % (34.0-46.0); Lymphocytes # (A) 2.5 k/uL (1.0-4.8); Lymphocytes % (A) 28 %; MCH 31.7 pg (25.0-35.0); MCV 93.2 fL (80.0-100.0); Mean Platelet Volume 7.9; Monocytes # (A) 0.5 k/uL (0-1.0); Monocytes % (A) 5 %; Neutrophils # (A) 4.9 k/uL (1.3-7.7); Neutrophils % (A) 54 %; Platelet Count 240 k/uL (150-450); RDW 13.2 % (11.5-15.5); WBC 8.9 k/uL (3.8-10.6)
[2020-10-20 22:30] LABS: ALT 38 U/L (4-34); AST 30 U/L (14-36); African American GFR (CKD) >90 (>60 ml/min/1.73 sqM); Albumin 4.3 g/dL (3.5-5.0); Alkaline Phosphatase 134 U/L (38-126); Anion Gap 9 mmol/L; Blood Urea Nitrogen 13 mg/dL (7-17); Calcium 9.3 mg/dL (8.4-10.2); Carbon Dioxide 28 mmol/L (22-30); Chloride 97 mmol/L (98-107); Glucose 109 mg/dL (74-99); Magnesium 2.1 mg/dL (1.6-2.3); Non-African American GFR(CKD) 88 (>60 ml/min/1.73 sqM); Potassium 4.2 mmol/L (3.5-5.1); Sodium 134 mmol/L (137-145); Total Bilirubin 0.3 mg/dL (0.2-1.3); Total Protein 7.2 g/dL (6.3-8.2)
[2020-10-20 23:14] VITALS: BP 135/72; PULSE 76; RESP 16
== END 2020-10-20 23:14 | disposition home or self-care (01) ==
LOC: EC 16:34
DX: R10.9 Unspecified abdominal pain (principal); T50.905A Adverse effect of unspecified drugs, medicaments and biological substances, initial encounter; E11.9 Type 2 diabetes mellitus without complications; I10 Essential (primary) hypertension; E78.5 Hyperlipidemia, unspecified; K21.9 Gastro-esophageal reflux disease without esophagitis; F32.9 Major depressive disorder, single episode, unspecified; F41.9 Anxiety disorder, unspecified; Z79.82 Long term (current) use of aspirin; Z79.899 Other long term (current) drug therapy; Z88.0 Allergy status to penicillin; Z88.2 Allergy status to sulfonamides; Z85.828 Personal history of other malignant neoplasm of skin; Z86.73 Personal history of transient ischemic attack (TIA), and cerebral infarction without residual deficits; Z90.49 Acquired absence of other specified parts of digestive tract
CPT/HCPCS: 36415; 80053; 83605; 83735; 85025; 81001; 96374; 96375; 96361; 99284; J2405; J1885

== ENCOUNTER → 2020-11-03 | Outpatient (CLI) | payer MEDICARE, OTHER ==
--- NOTE | 2020-11-03 12:55 | MR ---
EXAMINATION TYPE: MR lumbar spine wo con DATE OF EXAM: 11/03/2020 COMPARISON: NONE HISTORY: Low Back Pain TECHNIQUE: T1 and T2 axial and sagittal images of the lumbar spine are submitted. FINDINGS: There is no abnormal signal seen within the visualized spinal cord or paraspinal soft tissu es. At L1-2 there is degenerative disc disease with broad-based central disc bulging and mild effacement of thecal sac. Disc bulging slightly greater paracentrally to the left. Mild bilateral foraminal encr oachment and borderline canal stenosis. At L2-3 there is degenerative disc disease with broad-based disc bulging resulting in mild anterior c ompression thecal sac. Hypertrophic change of the facets and ligamentum flavum result in mild canal s tenosis and bilateral foraminal encroachment. At L3-4 there is broad-based disc protrusion with suspected right paracentral small disc herniation e xtending just posterior to the upper margin of the elbow or vertebral segment. Facet arthropathy and ligamentum flavum hypertrophy contribute to moderate canal stenosis with mild left and moderate right foraminal encroachment. At L4-5 there is severe degenerative disc disease with advanced facet arthropathy and ligamentum flav um hypertrophy resulting in moderate to severe central stenosis and bilateral foraminal encroachment. At L5-S1 there is facet arthropathy with disc bridging greater paracentrally the right. Mild bilatera l foraminal encroachment. Incidental note made of Tarlov cyst involving the sacral levels. IMPRESSION: 1. Multilevel moderate to severe degenerative disc disease most marked at L4-L5. 2. Multilevel canal stenosis or disc bulging and hypertrophic change of the facets and ligamentum fla vum. Most marked at L4-5 with moderate to severe canal stenosis. Multilevel foraminal encroachment as discussed above. 3. Area appears to be a broad-based disc protrusion L3-L4 with focal right paracentral disc herniatio n extending just along the upper margin the L4 vertebral body. Foraminal encroachment and canal steno sis as discussed above.
== END | disposition home or self-care (01) ==
LOC: RADMRIMAIN 08:52
PROVIDERS: ATTEND Internal Medicine
DX: M51.26 Other intervertebral disc displacement, lumbar region (principal); M51.36 Other intervertebral disc degeneration, lumbar region; M48.061 Spinal stenosis, lumbar region without neurogenic claudication
CPT/HCPCS: 72148

== ENCOUNTER → 2020-12-26 | Outpatient (CLI) | payer MEDICARE, OTHER ==
--- NOTE | 2020-12-26 17:01 | CT ---
EXAMINATION TYPE: CT abdomen pelvis w con DATE OF EXAM: 12/26/2020 COMPARISON: 11/11/2014 HISTORY: Change in bowel habits CT DLP: 91.10 mGycm Automated exposure control for dose reduction was used. CONTRAST: CT scan of the abdomen pelvis is performed with IV Contrast, patient injected with 100 mL of Isovue 3 00. FINDINGS- LUNG BASES- No significant abnormality is appreciated. LIVER/GB-postcholecystectomy changes noted.. PANCREAS-atrophy of the pancreatic tail. SPLEEN- No gross abnormality is seen. ADRENALS- No gross abnormality is seen. KIDNEYS/BLADDER- no hydronephrosis nephrolithiasis or renal mass. BOWEL-retained fecal debris throughout the colon with no evidence of obstruction. Reduced distention seen in the distal left colon and transverse colon. A questionable area of localized narrowing involv ing the mid to distal left:. This could been the basis of incomplete distention but given the patient 's history consider colonoscopy. Suggestion of previous left-sided colonic surgery.. LYMPH NODES- No greater than 1cm abdominal or pelvic lymph nodes areappreciated. OSSEOUS STRUCTURES-hypertrophic and degenerative change of the spine. OTHER- aorta of normal caliber. No free fluid. IMPRESSION- 1. The colon appears to retain significant fecal debris with the somewhat decompression of the left c olon and sigmoid colon which results in a limited study. There is a suggestion of a questionable area of localized narrowing at the level of the mid left colon approximately 4.6 cm distal to the suspect ed previous suture line and surgical change. High likelihood of this could be on the basis of incompl ete distention rather than mucosal lesion correlate clinically and with direct visualization as clini fady warranted. 2. No pathologic adenopathy.
== END | disposition home or self-care (01) ==
LOC: RADCTMAIN 13:17
PROVIDERS: ATTEND Surgery
DX: R19.4 Change in bowel habit (principal); Z85.038 Personal history of other malignant neoplasm of large intestine
CPT/HCPCS: 82565; 84520; 74177; 36415; Q9967

== ENCOUNTER 2022-03-20 12:53 | Emergency (ER) | payer MEDICARE, OTHER ==
[2022-03-20 13:03] VITALS: TEMP 98
--- NOTE | 2022-03-20 13:47 | XR ---
EXAMINATION TYPE: XR clavicle LT, XR shoulder complete LT DATE OF EXAM: 03/20/2022 1:40 PM INDICATION: Patient age:Female; 61 years old; Reason for study: Fall; COMPARISON: 07/31/2020 radiograph TECHNIQUE: AP and cephalic tilt views were obtained of the left clavicle. Left shoulder frontal later al and scapular Y views. FINDINGS: There is age-indeterminate fracture of the distal left clavicle with cortical step-off is not definit ulises seen on prior in 2020. There is smooth erosive margins on the step-off suggesting more chronic fr acture. No acute fractures definitively visualized. The glenohumeral and acromial clavicular joint is intact. The stress portion of the chest are grossly unremarkable.. IMPRESSION: Age-indeterminate but felt to be chronic appearing left distal clavicle fracture, correlate with poin t tenderness. No acute fractures definitively visualized.
--- NOTE | 2022-03-20 13:54 | CT ---
EXAMINATION TYPE: CT brain cspine wo con CT DLP: 1500.1 mGycm, Automated exposure control for dose reduction was used. DATE OF EXAM: 03/20/2022 1:38 PM COMPARISON: 07/31/2020 CLINICAL INDICATION:Female, 61 years old with history of Fall; Fall. TECHNIQUE: Brain: Multiple axial CT images of the brain were obtained without IV contrast. Cspine: Axial CT images from the skull base to the inferior aspect of T2 we obtained without intraven ous contrast. Coronal and sagittal reformatted images were also reviewed. FINDINGS: Brain: Extra-axial spaces: No abnormal extra-axial fluid collections. Ventricular system: Within normal limits Cerebral parenchyma: No acute intraparenchymal hemorrhage or mass effect. The veliz-white junction is well differentiated. Cerebellum: Unremarkable. Mass effect: No evidence of midline shift. Intracranial vasculature: Atherosclerotic calcifications of the intracranial vessels. Soft tissues: Normal. Calvarium/osseous structures: No depressed skull fracture. Paranasal sinuses and mastoid air cells: Clear. Visualized orbits: Orbital contents are intact. Cervical spine: Fracture: None. Osseous structures: Multilevel degenerative disc disease changes with endplate spurring and disc oste ophyte complex's. Fusion of the posterior arch of C1. Vertebral alignment: Within normal limits. Spinal canal/Neural Foramina: Disc osteophyte complexes at C5-C6 with at least mild spinal canal sten osis. No evidence for significant neural foraminal stenosis. Neck soft tissues: Prevertebral soft tissues are within normal limits. Other: The airway is patent. The lung apices are clear. IMPRESSION: 1. No acute intracranial process. 2. No evidence of cervical spine fracture. 3. Mild multilevel degenerative disc disease.
--- NOTE | 2022-03-20 13:55 | ED ---
Trauma HPI - General Chief Complaint: Extremity Injury, Upper Stated Complaint: fall Time Seen by Provider: 03/20/22 12:53 Source: patient, RN notes reviewed Mode of arrival: EMS Limitations: no limitations - History of Present Illness Initial Comments: 62-year-old female history of hypertension diabetes squamous cell cancer in the past who is a she slipped and fell try to get on a bus prior to arrival. She thinks she hit her head she states she might have blacked out for 1-2 minutes she complains of left-sided neck pain left shoulder pain left hip and knee pain. She is here with her daughter who states she does have a poor memory. Patient denies any palpitations a nausea vomiting blurry vision or other symptoms. She was brought in by EMS. MD Complaint: fall, injury - Related Data Home Medications Medication Instructions Recorded Confirmed atenoloL [Tenormin] 50 mg PO DAILY 06/18/15 07/31/20 HYDROcodone/APAP 10-325MG [[place] 1 tab PO Q6H PRN 06/08/16 07/31/20 10-325] buPROPion XL [Wellbutrin XL] 300 mg PO DAILY 06/08/16 07/31/20 Aspirin [Adult Low Dose Aspirin EC] 81 mg PO DAILY 04/17/20 07/31/20 Baclofen [Lioresal] 10 mg PO TID PRN 07/31/20 07/31/20 Ergocalciferol [Vitamin D2 (1250 1,250 mcg PO FLOREZ 07/31/20 07/31/20 Mcg = 13055 Iu)] Omeprazole 20 mg PO BID 07/31/20 07/31/20 hydrOXYzine pamoate [Vistaril] 25 mg PO DAILY PRN 07/31/20 07/31/20 Previous Rx's Medication Instructions Recorded Atorvastatin [Lipitor] 40 mg PO DAILY tab 08/03/20 Mirtazapine [Remeron] 15 mg PO HS tab 08/03/20 Sertraline [Zoloft] 50 mg PO DAILY tab 08/03/20 lamoTRIgine [LaMICtal] 100 mg PO BID tab 08/03/20 Allergies Allergy/AdvReac Type Severity Reaction Status Date / Time bee venom protein (honey bee) Allergy Anaphylaxis Verified 10/20/20 17:45 Penicillins Allergy Anaphylaxis Verified 10/20/20 17:45 Sulfa (Sulfonamide Allergy Anaphylaxis Verified 10/20/20 17:45 Antibiotics) Review of Systems ROS Statement: Those systems with pertinent positive or pertinent negative responses have been documented in the HPI. ROS Other: All systems not noted in ROS Statement are negative. 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 Past Psychological History: Anxiety, Depression Smoking Status: Never smoker Past Alcohol Use History: None Reported Past Drug Use History: None Reported - Past Family History Mother Family Medical History: No Reported History Additional Family Medical History / Comment(s): Mother is healthy. She is living. Father Family Medical History: Cancer Additional Family Medical History / Comment(s): Father from colon cancer with mets. General Exam - General Exam Comments Initial Comments: This is a well-developed well-nourished awake alert oriented 4 female Limitations: no limitations General appearance: alert, in no apparent distress Head exam: Present: atraumatic, normocephalic, normal inspection Eye exam: Present: normal appearance, PERRL, EOMI. Absent: scleral icterus, conjunctival injection, periorbital swelling ENT exam: Present: normal exam, mucous membranes moist Neck exam: Present: normal inspection, tenderness ( c-collar in place tenderness palpation of the left), other (No stridor JVD or bruits. No midline neck tenderness palpation no step-off or crepitation). Absent: meningismus, lymphadenopathy Respiratory exam: Present: normal lung sounds bilaterally. Absent: respiratory distress, wheezes, rales, rhonchi, stridor Cardiovascular Exam: Present: regular rate, normal rhythm, normal heart sounds. Absent: systolic murmur, diastolic murmur, rubs, gallop, clicks GI/Abdominal exam: Present: soft, normal bowel sounds. Absent: distended, tend erness, guarding, rebound, rigid Extremities exam: Present: full ROM, normal capillary refill, other (Tenderness to palpation over the left lateral neck musculature and trapezius tenderness over the left shoulder and left distal clavicle with no step-off or crepitation or deformity noted. Tenderness over left hip no deformity no step-off or crepitation. Tenderness over left knee again no evidenceo). Absent: tenderness, pedal edema, joint swelling, calf tenderness Back exam: Present: normal inspection Neurological exam: Present: alert, oriented X3, CN II-XII intact. Absent: motor sensory deficit Psychiatric exam: Present: normal affect, normal mood Skin exam: Present: warm, dry, intact, normal color. Absent: rash Course Vital Signs 03/20/22 12:59 Temperature 98 F Pulse Rate 62 Respiratory 20 Rate Blood Pressure 147/91 O2 Sat by Pulse 99 Oximetry Medical Decision Making - Medical Decision Making I did discuss the findings with the patient and family patient be discharged she does have clinical evidence of acute fracture to the distal clavicle with evidence of an old fracture. Other imaging that was interpreted by me shows no acute findings other degenerative changes.Was pt. sent in by a medical professional or institution (, PA, EARLY CHILDHOOD ASSISTANT, urgent care, hospital, or long term...) When possible be specific @ -[No] Did you speak to anyone other than the patient for history (EMS, parent, family, police, friend...)? What history was obtained from this source @ -[Paramedics] Did you review nursing and triage notes (agree or disagree)? Why? @ -[I reviewed and agree with nursing and triage notes] Were old charts reviewed (outside hosp., previous admission, EMS record, old EKG, old radiological studies, urgent care reports/EKG's, long term records)? Report findings @ -[No old charts were reviewed] Differential Diagnosis (chest pain, altered mental status, abdominal pain women, abdominal pain men, vaginal bleeding, weakness, fever, dyspnea, syncope, h eadache, dizziness, GI bleed, back pain, seizure, CVA, palpatations, mental health)? @ -[Concussion, multiple contusions, clavicle fracture and shoulder fracture] EKG interpreted by me (3pts min.). @ -[Not applicable] X-rays interpreted by me (1pt min.). @ -[Yes] CT interpreted by me (1pt min.). @ -[Yes] U/S interpreted by me (1pt. min.). @ -[None done] What testing was considered but not performed or refused? (CT, X-rays, U/S, labs)? Why? @ -[None] What meds were considered but not given or refused? Why? @ -[None] Did you discuss the management of the patient with other professionals (professionals i.e. DrLyndsay, PA, EARLY CHILDHOOD ASSISTANT, lab, RT, psych nurse, social media coordinator, small business representative, teacher, animal park code enforcement officer, case supervisor)? Give summary @ -[No] Was smoking cessation discussed for >3mins.? @ -[No] Was critical care preformed (if so, how long)? @ -[No] Were there social determinants of health that impacted care today? How? (Homelessness, low income, unemployed, alcoholism, drug addiction, transportation, low edu. Level, literacy, decrease access to med. care, half-way, rehab)? @ -[No] Was there de-escalation of care discussed even if they declined (Discuss DNR or withdrawal of care, Hospice)? DNR status @ -[No] What co-morbidities impacted this encounter? (DM, HTN, Smoking, COPD, CAD, Cancer, CVA, ARF, Chemo, Hep., AIDS, mental health diagnosis, sleep apnea, morbid obesity)? @ -[Prior memory issues and a facial] Was patient admitted / discharged? Hospital course, mention meds given and route, prescriptions, significant lab abnormalities, going to OR and other pertinent info. @ -[hospital course] patient was discharged Undiagnosed new problem with uncertain prognosis? @ -[No] Drug Therapy requiring intensive monitoring for toxicity (Heparin, Nitro, Insulin, Cardizem)? @ -[No] Were any procedures done? @ -[No] Diagnosis/symptom? @ -[default] Acute, or Chronic, or Acute on Chronic? @ -[Acute] Uncomplicated (without systemic symptoms) or Complicated (systemic symptoms)? @ -[default] Side effects of treatment? @ -[No] Exacerbation, Progression, or Severe Exacerbation? @ -[No] Poses a threat to life or bodily function? How? (Chest pain, [place], [place], pneumonia, PE, COPD, DKA, ARF, appy, cholecystitis, CVA, Diverticulitis, Homicidal, Suicidal, threat to staff... and all critical care pts) @ -[No] - Radiology Data Interpreted by me: I did interpret the imaging was done CT the brain and neck show no acute processes. Evidence of DJD seen in the neck. Left clavicle evidence of old fracture she is tender over the site 1 is suspected. Left shoulder unremarkable for subluxation or fracture. Left hip unremarkable. Left knee unremarkable except for evidence of degenerative joint disease. I did discuss findings with the patient and family members patient does demonstrate evidence of a mild concussion as well as left clavicle fracture in contusion to the shoulder hip and knee. Be placed in a sling and discharged with follow-up with her doctor. Disposition Clinical Impression: Fall, Closed left clavicular fracture, Multiple contusions, Concussion Disposition: HOME SELF-CARE Condition: Good Instructions (If sedation given, give patient instructions): Concussion (ED), Clavicle Fracture (ED), Contusion in Adults (ED) Additional Instructions: Ice to affected areas 24-48 hours Is patient prescribed a controlled substance at d/c from ED?: No Referrals: Neto Warner MD [Primary Care Provider] - 1-2 days Decision Date: 03/20/22 Decision Time: 14:49
--- NOTE | 2022-03-20 13:58 | XR ---
EXAMINATION TYPE: XR knee 4V LT DATE OF EXAM: 03/20/2022 1:51 PM INDICATION: Patient age:Female; 61 years old; Reason for study: Fall; COMPARISON: None. TECHNIQUE: The Left knee(s) was examined in Frontal, lateral and oblique projections. FINDINGS: [id number] articulation at the patellofemoral joint with sclerosis and joint space narrow ing. There is joint space narrowing of both medial lateral joint space also present. No evidence of any acute osseous pathology, soft tissue swelling, or joint effusion is noted. IMPRESSION: 1. No definitive displaced acute osseous pathology. 2. End-stage patellofemoral joint osteoarthrosis with [id number] articulation.
--- NOTE | 2022-03-20 13:59 | XR ---
EXAMINATION TYPE: XR Hip LT and AP Pelvis DATE OF EXAM: 03/20/2022 1:51 PM INDICATION: Patient age:Female; 61 years old; Reason for study: Fall; COMPARISON: None. TECHNIQUE: The left hip was examined in the frontal and lateral projections and a AP pelvis. FINDINGS: No evidence for acute process, joint dislocation or significant soft tissue swelling. Mild osteophyte formation of the superior acetabulum of the hips. Degeneration changes of the spine. IMPRESSION: 1. No evidence for acute process. 2. Mild hip osteoarthrosis.
[2022-03-20 15:23] VITALS: RESP 16
[2022-03-20 15:24] VITALS: BP 130/60; PULSE 62
== END 2022-03-20 15:25 | disposition home or self-care (01) ==
LOC: EC 12:53
DX: S42.002A Fracture of unspecified part of left clavicle, initial encounter for closed fracture (principal); S42.032A Displaced fracture of lateral end of left clavicle, initial encounter for closed fracture; S06.0XAA Concussion with loss of consciousness status unknown, initial encounter; M17.12 Unilateral primary osteoarthritis, left knee; E11.9 Type 2 diabetes mellitus without complications; I10 Essential (primary) hypertension; F41.9 Anxiety disorder, unspecified; F32.A Depression, unspecified; Z79.82 Long term (current) use of aspirin; Z79.899 Other long term (current) drug therapy; Z88.0 Allergy status to penicillin; Z88.2 Allergy status to sulfonamides; Z91.030 Bee allergy status; Z90.49 Acquired absence of other specified parts of digestive tract; W01.0XXA Fall on same level from slipping, tripping and stumbling without subsequent striking against object, initial encounter
CPT/HCPCS: 70450; 72125; 73502; 99285

== ENCOUNTER → 2023-01-03 | Outpatient (CLI) | payer MEDICARE, OTHER ==
[2023-01-04 07:23] LABS: Gliadin AB IgA, Deaminated Negative (Negative); Gliadin AB IgA, Unit 1.4 U/mL; Gliadin AB IgG, Deaminated Negative (Negative); Gliadin AB IgG, Unit <0.4 U/mL
== END | disposition home or self-care (01) ==
LOC: LABWHC1 13:15
PROVIDERS: ATTEND Internal Medicine Gastroenterology
DX: R14.0 Abdominal distension (gaseous) (principal)
CPT/HCPCS: 36415; 83516

== ENCOUNTER 2023-01-05 10:32 | Day surgery (SDC) | payer MEDICARE, OTHER ==
[2023-01-03 11:03] VITALS: BMI 29.2
[2023-01-05 11:57] VITALS: TEMP 96.8
[2023-01-05] MEDS ORDERED: PROPOFOL 10 MG/ML 20 ML VIAL IV ONE (12:09)
--- NOTE | 2023-01-05 12:22 | P.PCN ---
Date of Procedure: 01/05/23 Procedure(s) Performed: BRIEF HISTORY: Patient is a 62-year-old pleasant female scheduled for an elective colonoscopy as a part of evaluation change in bowel habits and family history of colon cancer. Her dad was diagnosed with colon cancer at age 65. PROCEDURE PERFORMED: Colonoscopy with snare polypectomy. PREOPERATIVE DIAGNOSIS: Change in bowel habits and family history of colon cancer. IV sedation per Anesthesia. PROCEDURE: After informed consent was obtained, the patient, was brought into [facility] endoscopy unit. IV sedation was administered by Anesthesia under continuous monitoring. Digital rectal examination was normal. Initially the Olympus CF-160 flexible video colonoscope was then inserted in the rectum, gradually advanced into the cecum without any difficulty. Careful examination was performed as the scope was gradually being withdrawn. Ileocecal valve and the appendiceal orifice were visualized and appeared normal. Prep was excellent. Mucosa of the cecum, ascending colon, transverse colon, appeared normal. The descending colon there was a 6 minute a polyp that was removed by snare polypectomy. Rest of the descending colon, sigmoid colon, and rectum appeared normal. Retroflexion was performed in the rectum and no lesions were seen. The patient tolerated the procedure well. IMPRESSION: 6 mm descending colon polyp status post polypectomy Rest of the colon appeared normal RECOMMENDATIONS: Findings of this examination were discussed with the patient as well as her family. She was advised to follow with the biopsy results and have a repeat colonoscopy in 5 years because of the family history of colon cancer.
[2023-01-05 12:54] VITALS: BP 136/79; PULSE 100; RESP 15
== END 2023-01-05 12:59 | disposition home or self-care (01) ==
LOC: ORWHC2ENDO 10:32
PROVIDERS: ATTEND Internal Medicine Gastroenterology
DX: Z12.11 Encounter for screening for malignant neoplasm of colon (principal); D12.4 Benign neoplasm of descending colon; K63.5 Polyp of colon; E78.5 Hyperlipidemia, unspecified; I10 Essential (primary) hypertension; Z88.0 Allergy status to penicillin; Z88.2 Allergy status to sulfonamides; Z98.890 Other specified postprocedural states; Z80.0 Family history of malignant neoplasm of digestive organs; Z79.899 Other long term (current) drug therapy
CPT/HCPCS: 45385; J2704; 88305

== ENCOUNTER 2023-04-13 14:16 | Emergency (ER) | payer MEDICARE, OTHER ==
[2023-04-13 14:41] VITALS: RESP 18
--- NOTE | 2023-04-13 14:58 | ED ---
General Adult HPI - General Chief complaint: Fall Stated complaint: Fall, Hit Head not on Thinners Time Seen by Provider: 04/13/23 14:25 Source: patient, family, RN notes reviewed, old records reviewed Mode of arrival: wheelchair Limitations: no limitations - History of Present Illness Initial comments: 62-year-old female status post fall with loss consciousness. Patient is uncertain of the exact sequence of events but believes she tripped with occipital head trauma and loss consciousness. No anticoagulation. This occurred 2 hours prior to arrival. Patient states she is on aspirin. She also injured her right knee with a fall. - Related Data Home Medications Medication Instructions Recorded Confirmed atenoloL [Tenormin] 50 mg PO DAILY 06/18/15 01/03/23 HYDROcodone/APAP 10-325MG [[place] 1 tab PO Q6H PRN 06/08/16 01/03/23 10-325] Ergocalciferol [Vitamin D2 (1250 1,250 mcg PO FLOREZ 07/31/20 01/03/23 Mcg = 68103 Iu)] Omeprazole 20 mg PO DAILY 07/31/20 01/03/23 traZODone HCL 100 mg PO HS 01/03/23 01/05/23 Previous Rx's Medication Instructions Recorded Atorvastatin [Lipitor] 40 mg PO DAILY tab 08/03/20 lamoTRIgine [LaMICtal] 100 mg PO BID tab 08/03/20 Allergies Allergy/AdvReac Type Severity Reaction Status Date / Time bee venom protein (honey bee) Allergy Anaphylaxis Verified 04/13/23 14:22 Penicillins Allergy Anaphylaxis Verified 04/13/23 14:22 Sulfa (Sulfonamide Allergy Anaphylaxis Verified 04/13/23 14:22 Antibiotics) Review of Systems ROS Statement: Those systems with pertinent positive or pertinent negative responses have been documented in the HPI. ROS Other: All systems not noted in ROS Statement are negative. 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 Past Psychological History: Anxiety, Depression Smoking Status: Never smoker Past Alcohol Use History: None Reported Past Drug Use History: None Reported - Past Family History Mother Family Medical History: No Reported History Additional Family Medical History / Comment(s): Mother is healthy. She is living. Father Family Medical History: Cancer Additional Family Medical History / Comment(s): Father from colon cancer with mets. General Exam Limitations: no limitations General appearance: alert, in no apparent distress Head exam: Present: atraumatic, normocephalic (Occipital tenderness to palpation, no hematoma) Eye exam: Present: normal appearance, PERRL Neck exam: Present: normal inspection. Absent: tenderness, meningismus Respiratory exam: Present: normal lung sounds bilaterally. Absent: respiratory distress, wheezes Cardiovascular Exam: Present: regular rate, normal rhythm GI/Abdominal exam: Present: soft. Absent: distended, tenderness, guarding Extremities exam: Present: other (Abrasion to the anterior right knee) Neurological exam: Present: alert, CN II-XII intact, other. Absent: motor sensory deficit Psychiatric exam: Present: normal affect, normal mood Skin exam: Present: warm, dry, intact Course Vital Signs 04/13/23 14:17 Temperature 97.8 F Pulse Rate 65 Respiratory 18 Rate Blood Pressure 151/85 O2 Sat by Pulse 99 Oximetry Medical Decision Making - Medical Decision Making Was pt. sent in by a medical professional or institution (, PA, FAMILY SPECIALIST, urgent care, hospital, or jail...) When possible be specific @ -No Did you speak to anyone other than the patient for history (EMS, parent, family, police, friend...)? What history was obtained from this source @ -No Did you review nursing and triage notes (agree or disagree)? Why? @ -I reviewed and agree with nursing and triage notes Were old charts reviewed (outside hosp., previous admission, EMS record, old EKG, old radiological studies, urgent care reports/EKG's, jail records)? Report findings @ -No old charts were reviewed Differential Diagnosis (chest pain, altered mental status, abdominal pain women, abdominal pain men, vaginal bleeding, weakness, fever, dyspnea, syncope, headache, dizziness, GI bleed, back pain, seizure, CVA, palpatations, mental health, musculoskeletal)? @ -Intracranial hemorrhage, concussion, cervical spine injury EKG interpreted by me (3pts min.). @ -As above X-rays interpreted by me (1pt min.). @ -X-ray knee negative for displaced fracture or dislocation CT interpreted by me (1pt min.). @CT brain negative for intracranial hemorrhage or mass effect, CT cervical spine negative for fracture or subluxation. U/S interpreted by me (1pt. min.). @ -None done What testing was considered but not performed or refused? (CT, X-rays, U/S, labs)? Why? @ -None What meds were considered but not given or refused? Why? @ -None Did you discuss the management of the patient with other professionals (professionals i.e. , PA, FAMILY SPECIALIST, lab, RT, psych nurse, social media director, felt machine mechanic, te acher, fire control officer, bilingual case manager)? Give summary @ -No Was smoking cessation discussed for >3mins.? @ -No Was critical care preformed (if so, how long)? @ -No Were there social determinants of health that impacted care today? How? (Homelessness, low income, unemployed, alcoholism, drug addiction, transportation, low edu. Level, literacy, decrease access to med. care, prison, rehab)? @ -No Was there de-escalation of care discussed even if they declined (Discuss DNR or withdrawal of care, Hospice)? DNR status @ -No What co-morbidities impacted this encounter? (DM, HTN, Smoking, COPD, CAD, C ancer, CVA, ARF, Chemo, Hep., AIDS, mental health diagnosis, sleep apnea, morbid obesity)? @ [Memory impairment Was patient admitted / discharged? Hospital course, mention meds given and route, prescriptions, significant lab abnormalities, going to OR and other pertinent info. @ -62-year-old female with fall, head injury, loss conscious. Head CT obtained negative for intracranial hemorrhage or mass effect, cervical spine negative for fracture or subluxation. She additionally had a right knee injury which was x-rayed without fracture or dislocation. Patient stable for discharge at this time. Undiagnosed new problem with uncertain prognosis? @ -[No Drug Therapy requiring intensive monitoring for toxicity (Heparin, Nitro, Insulin, Cardizem)? @ -No Were any procedures done? @ -No Diagnosis/symptom? @ -[Concussion Acute, or Chronic, or Acute on Chronic? @ -Acute Uncomplicated (without systemic symptoms) or Complicated (systemic symptoms)? @ -Default Side effects of treatment? @ -No Exacerbation, Progression, or Severe Exacerbation? @ -No Poses a threat to life or bodily function? How? (Chest pain, [place], [place], pneumonia, PE, COPD, DKA, ARF, appy, cholecystitis, CVA, Diverticulitis, Homicidal, Suicidal, threat to staff... and all critical care pts) @ -Low risk at this time Disposition Clinical Impression: Fall, Concussion Disposition: HOME SELF-CARE Condition: Good Instructions (If sedation given, give patient instructions): Fall Prevention (ED), Concussion (ED) Is patient prescribed a controlled substance at d/c from ED?: No Referrals: Neto Warner MD [Primary Care Provider] - 1-2 days Time of Disposition: 16:02
--- NOTE | 2023-04-13 15:18 | CT ---
EXAMINATION TYPE: CT brain alejandra peres con DATE OF EXAM: 04/13/2023 COMPARISON: None available. HISTORY: Pain after fall. Patient is on blood thinners. CT DLP: 1341.3 mGycm Automated exposure control for dose reduction was used. TECHNIQUE: CT scan of the head and cervical spine are performed without contrast. FINDINGS: There is no acute intracranial hemorrhage, mass effect, or midline shift identified. Ther e is mild hypoattenuation in the periventricular white matter compatible with chronic ischemic small vessel change. Acute major vessel infarct is seen. The ventricles and sulci are within normal limits in size. The globes are intact and the visualized sinuses are clear. Cervical spine is visualized in its entirety from C1 through upper thoracic levels and demonstrates s atisfactory alignment without evidence of acute fracture or dislocation. Prevertebral soft tissue ap pears within normal limits. The C1-C2 articulation is unremarkable. IMPRESSION: 1. There is no acute fracture or dislocation evident in the cervical spine. 2. No acute intracranial hemorrhage, mass effect, or midline shift is seen.
--- NOTE | 2023-04-13 15:31 | XR ---
EXAMINATION TYPE: XR knee complete RT DATE OF EXAM: 04/13/2023 COMPARISON: NONE HISTORY: 62-year-old female with fall and pain TECHNIQUE: 3 views FINDINGS: Degenerative spurring medial and patellofemoral compartments. Trace knee joint effusion may be reactive. No lipohemarthrosis. Extensor mechanism is intact. No acute fracture, subluxation, disl ocation seen. IMPRESSION: 1. Trace knee joint effusion may be reactive to the medial patellofemoral compartmental OA. No acute osseous abnormality seen. 2. If symptoms persist, MRI can be considered.
[2023-04-13 16:42] VITALS: BP 135/67; PULSE 61; TEMP 97.5
== END 2023-04-13 16:23 | disposition home or self-care (01) ==
LOC: EC 14:16
DX: S06.0XAA Concussion with loss of consciousness status unknown, initial encounter (principal); R40.2410 Glasgow coma scale score 13-15, unspecified time; I10 Essential (primary) hypertension; F41.9 Anxiety disorder, unspecified; F32.A Depression, unspecified; Z79.899 Other long term (current) drug therapy; Z88.0 Allergy status to penicillin; Z88.2 Allergy status to sulfonamides; Z91.030 Bee allergy status; W01.10XA Fall on same level from slipping, tripping and stumbling with subsequent striking against unspecified object, initial encounter
CPT/HCPCS: 70450; 72125; 99284

== ENCOUNTER → 2023-04-13 | Outpatient (CLI) | payer MEDICARE, OTHER | END | disposition home or self-care (01) | LOC: LABWHC1 08:55 | PROVIDERS: ATTEND Psychiatry & Neurology Neurology | DX: R41.3 Other amnesia (principal); R26.81 Unsteadiness on feet; Z86.73 Personal history of transient ischemic attack (TIA), and cerebral infarction without residual deficits | CPT/HCPCS: 36415; 82607; 84443 ==

== ENCOUNTER 2023-11-25 13:11 | Emergency (ER) | payer MEDICARE, OTHER ==
[2023-11-25] MEDS: HYDROcodone/APAP 10-325MG 1 EACH TAB PO ONE ×2 (13:54→14:19)
--- NOTE | 2023-11-25 14:10 | CT ---
EXAMINATION TYPE: CT brain wo con CT DLP: 1129.4 mGycm, Automated exposure control for dose reduction was used. DATE OF EXAM: 11/25/2023 2:05 PM COMPARISON: CT brain C-spine 04/13/1934 CLINICAL INDICATION:Female, 63 years old with history of fall, persistent FLOWER, HEADACHE X2 MONTHS TECHNIQUE: Brain: Multiple axial CT images of the brain were obtained without IV contrast. . Coronal and sagitta l reformats reviewed. FINDINGS: Brain: Extra-axial spaces: No abnormal extra-axial fluid collections. Ventricular system: Within normal limits Cerebral parenchyma: No acute intraparenchymal hemorrhage or mass effect. The veliz-white junction is well differentiated. Scattered hypoattenuating areas are seen within the periventricular white matte r. Cerebellum: Unremarkable. Mass effect: No evidence of midline shift. Intracranial vasculature: unremarkable Soft tissues: Normal. Calvarium/osseous structures: No depressed skull fracture. Benign hyperostosis frontalis noted. Paranasal sinuses and mastoid air cells: Clear Visualized orbits: Orbital contents are intact. IMPRESSION: 1. No acute intracranial process. 2. Nonspecific white matter changes, likely secondary to chronic small vessel ischemic disease. [facility], , 11/25/2023 2:08 PM
[2023-11-25 14:19] VITALS: PULSE 58; RESP 18; TEMP 97.9
--- NOTE | 2023-11-25 14:29 | ED ---
Fall HPI - General Chief Complaint: Fall Stated Complaint: Fall Time Seen by Provider: 11/25/23 13:30 Source: patient, family, RN notes reviewed Mode of arrival: ambulatory - History of Present Illness Initial Comments: 63-year-old female presents emergency department with family including her daughter for chief complaint of a fall that occurred yesterday during the middle of the night. Patient states that she was in her room asleep when she had to use the restroom in the middle of the night when she got up and fell backwards hitting her head on her dresser. Patient states that her dresser is close to her bed and she was unable to see the dresser in the middle of the night causing her to fall and hit her head. She denies presyncopal symptoms before the event such as chest pain, shortness of breath, difficulty breathing, blurry or double vision. Patient denies loss of consciousness at the time of this event. She denies other acute injuries as well. Currently, states that she has a mild headache. Denies blood thinner use. - Related Data Home Medications Medication Instructions Recorded Confirmed atenoloL [Tenormin] 50 mg PO DAILY 06/18/15 01/03/23 HYDROcodone/APAP 10-325MG [[place] 1 tab PO Q6H PRN 06/08/16 01/03/23 10-325] Ergocalciferol [Vitamin D2 (1250 1,250 mcg PO FLOREZ 07/31/20 01/03/23 Mcg = 15677 Iu)] Omeprazole 20 mg PO DAILY 07/31/20 01/03/23 traZODone HCL 100 mg PO HS 01/03/23 01/05/23 Previous Rx's Medication Instructions Recorded Atorvastatin [Lipitor] 40 mg PO DAILY tab 08/03/20 lamoTRIgine [LaMICtal] 100 mg PO BID tab 08/03/20 Allergies Allergy/AdvReac Type Severity Reaction Status Date / Time bee venom protein (honey bee) Allergy Anaphylaxis Verified 04/13/23 14:22 Penicillins Allergy Anaphylaxis Verified 04/13/23 14:22 Sulfa (Sulfonamide Allergy Anaphylaxis Verified 04/13/23 14:22 Antibiotics) Review of Systems ROS Statement: Those systems with pertinent positive or pertinent negative responses have been documented in the HPI. ROS Other: All systems not noted in ROS Statement are negative. 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 Past Psychological History: Anxiety, Depression Smoking Status: Never smoker Past Alcohol Use History: None Reported Past Drug Use History: None Reported - Past Family History Mother Family Medical History: No Reported History Additional Family Medical History / Comment(s): Mother is healthy. She is living. Father Family Medical History: Cancer Additional Family Medical History / Comment(s): Father from colon cancer with mets. General Exam Limitations: no limitations General appearance: alert, in no apparent distress Head exam: Present: atraumatic, normocephalic, normal inspection Eye exam: Present: normal appearance, PERRL, EOMI. Absent: scleral icterus, conjunctival injection, periorbital swelling Neck exam: Present: normal inspection. Absent: tenderness, meningismus, lymphadenopathy Respiratory exam: Present: normal lung sounds bilaterally. Absent: respiratory distress, wheezes, rales, rhonchi, stridor Cardiovascular Exam: Present: regular rate, normal rhythm, normal heart sounds. Absent: systolic murmur, diastolic murmur, rubs, gallop, clicks GI/Abdominal exam: Present: soft, normal bowel sounds. Absent: distended, tenderness, guarding, rebound, rigid Extremities exam: Present: normal inspection, full ROM, normal capillary refill. Absent: tenderness, pedal edema, joint swelling, calf tenderness Back exam: Present: normal inspection Neurological exam: Present: alert, oriented X3, CN II-XII intact Skin exam: Present: warm, dry, intact, normal color. Absent: rash Course Vital Signs 11/25/23 11/25/23 13:12 14:18 Temperature 97.6 F 97.9 F Pulse Rate 63 58 L Respiratory 20 18 Rate Blood Pressure 137/72 117/100 O2 Sat by Pulse 99 97 Oximetry Medical Decision Making - Medical Decision Making Was pt. sent in by a medical professional or institution (MARYLOU Lopez, GAS PLANT WORKER, urgent care, hospital, or skilled nursing...) When possible be specific @ -No Did you speak to anyone other than the patient for history (EMS, parent, family, police, friend...)? 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 Did you review nursing and triage notes (agree or disagree)? Why? @ -I reviewed and agree with nursing and triage notes Were old charts reviewed (outside hosp., previous admission, EMS record, old EKG, old radiological studies, urgent care reports/EKG's, skilled nursing records)? Report findings @ -No old charts were reviewed Differential Diagnosis (chest pain, altered mental status, abdominal pain women, abdominal pain men, vaginal bleeding, weakness, fever, dyspnea, syncope, headache, dizziness, GI bleed, back pain, seizure, CVA, palpatations, mental health, musculoskeletal)? @ -Differential Headache: Migraine, tension, cluster, carbon monoxide, central venous thrombosis, pension karma temporal arteritis, acute closure glaucoma, intercranial hemorrhage, mastoiditis, sinusitis, head injury, this is not meant to be an all-inclusive list. EKG interpreted by me (3pts min.). @ -None X-rays interpreted by me (1pt min.). @ -None done CT interpreted by me (1pt min.). @ -CT of the brain without contrast negative for acute process. U/S interpreted by me (1pt. min.). @ -None done What testing was considered but not performed or refused? (CT, X-rays, U/S, labs)? Why? @ -None What meds were considered but not given or refused? Why? @ -None Did you discuss the management of the patient with other professionals (professionals i.e. MARYLOU Lopez, GAS PLANT WORKER, lab, RT, psych nurse, long term care social worker, wet suit gluer, teacher, custodial officer, caseworker protective services)? Give summary @ -No Was smoking cessation discussed for >3mins.? @ -No Was critical care preformed (if so, how long)? @ -No Were there social determinants of health that impacted care today? How? (Homelessness, low income, unemployed, alcoholism, drug addiction, transportation, low edu. Level, literacy, decrease access to med. care, snf, rehab)? @ -No Was there de-escalation of care discussed even if they declined (Discuss DNR or withdrawal of care, Hospice)? DNR status @ -No What co-morbidities impacted this encounter? (DM, HTN, Smoking, COPD, CAD, Cancer, CVA, ARF, Chemo, Hep., AIDS, mental health diagnosis, sleep apnea, morbid obesity)? @ -None Was patient admitted / discharged? Hospital course, mention meds given and route, prescriptions, significant lab abnormalities, going to OR and other pertinent info. @ -Discharge. 63-year-old female with head injury. Patient's vitals are stable. Neurological examination with no acute deficits. Examination of the patient's neck reveals no crepitus, loss of range of motion, deficits. Patient's complaining of a headache after head injury. Due to concern for possible intracranial pathology she will be evaluated see CT imaging. States that she normally takes Yale at home for chronic pain and she is provided with a dose of this medication while emergency department. She is agreeable this plan. CT imaging negative for acute process. Recommend that patient continue follow-up outpatient with her primary care provider for continued care. Patient stable for discharge at this time. Discussed with Dr. Jones Undiagnosed new problem with uncertain prognosis? @ -No Drug Therapy requiring intensive monitoring for toxicity (Heparin, Nitro, Insulin, Cardizem)? @ -No Were any procedures done? @ -No Diagnosis/symptom? @ -Head injury Acute, or Chronic, or Acute on Chronic? @ -Acute Uncomplicated (without systemic symptoms) or Complicated (systemic symptoms)? @ -Uncomplicated Side effects of treatment? @ -No Exacerbation, Progression, or Severe Exacerbation? @ -No Poses a threat to life or bodily function? How? (Chest pain, [place], [place], pneumonia, PE, COPD, DKA, ARF, appy, cholecystitis, CVA, Diverticulitis, Homicidal, Suicidal, threat to staff... and all critical care pts) @ -No Disposition Clinical Impression: Fall, Head injury Disposition: HOME SELF-CARE Condition: Good Instructions (If sedation given, give patient instructions): Fall Prevention for Older Adults (ED) Additional Instructions: Please return to the Emergency Department if symptoms worsen or any other concerns. Is patient prescribed a controlled substance at d/c from ED?: No Referrals: Neto Warner MD [Primary Care Provider] - 1-2 days Time of Disposition: 14:28
[2023-11-25 15:12] VITALS: BP 128/102
== END 2023-11-25 15:12 | disposition home or self-care (01) ==
LOC: EC 13:11
DX: W19.XXXA Unspecified fall, initial encounter
CPT/HCPCS: 70450; 99283

== ENCOUNTER 2024-01-12 15:17 | Emergency (ER) | payer MEDICARE, OTHER ==
--- NOTE | 2024-01-12 15:34 | ED ---
Fall HPI - General Stated Complaint: FELL AND HIT HEAD Time Seen by Provider: 01/12/24 15:30 Source: patient, RN notes reviewed - History of Present Illness Initial Comments: This is a 63-year-old female presenting to the emergency department for chief complaint of fall. 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 Patient states that she may have lost consciousness for a brief moment of time. She denies thinner use. Patient is endorsing pain of the left knee that is most severe with ambulation and with range of motion. - Related Data Home Medications Medication Instructions Recorded Confirmed atenoloL [Tenormin] 50 mg PO DAILY 06/18/15 01/03/23 HYDROcodone/APAP 10-325MG [[place] 1 tab PO Q6H PRN 06/08/16 01/03/23 10-325] Ergocalciferol [Vitamin D2 (1250 1,250 mcg PO FLOREZ 07/31/20 01/03/23 Mcg = 98795 Iu)] Omeprazole 20 mg PO DAILY 07/31/20 01/03/23 traZODone HCL 100 mg PO HS 01/03/23 01/05/23 Previous Rx's Medication Instructions Recorded Atorvastatin [Lipitor] 40 mg PO DAILY tab 08/03/20 lamoTRIgine [LaMICtal] 100 mg PO BID tab 08/03/20 Allergies Allergy/AdvReac Type Severity Reaction Status Date / Time bee venom protein (honey bee) Allergy Anaphylaxis Verified 04/13/23 14:22 Penicillins Allergy Anaphylaxis Verified 04/13/23 14:22 Sulfa (Sulfonamide Allergy Anaphylaxis Verified 04/13/23 14:22 Antibiotics) Review of Systems ROS Statement: Those systems with pertinent positive or pertinent negative responses have been documented in the HPI. ROS Other: All systems not noted in ROS Statement are negative. 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 Past Psychological History: Anxiety, Depression Smoking Status: Never smoker Past Alcohol Use History: None Reported Past Drug Use History: None Reported - Past Family History Mother Family Medical History: No Reported History Additional Family Medical History / Comment(s): Mother is healthy. She is living. Father Family Medical History: Cancer Additional Family Medical History / Comment(s): Father from colon cancer with mets. General Exam General appearance: alert, in no apparent distress Eye exam: Present: normal appearance, PERRL, EOMI. Absent: scleral icterus, conjunctival injection, periorbital swelling ENT exam: Present: normal exam, mucous membranes moist Neck exam: Present: normal inspection. Absent: tenderness, meningismus, lymphadenopathy Respiratory exam: Present: normal lung sounds bilaterally. Absent: respiratory distress, wheezes, rales, rhonchi, stridor Cardiovascular Exam: Present: regular rate, normal rhythm, normal heart sounds. Absent: systolic murmur, diastolic murmur, rubs, gallop, clicks GI/Abdominal exam: Present: soft, normal bowel sounds. Absent: distended, tenderness, guarding, rebound, rigid Extremities exam: Present: normal inspection, full ROM, normal capillary refill. Absent: tenderness, pedal edema, joint swelling, calf tenderness Left Knee exam: Present: tenderness. Absent: swelling, abrasion, laceration, ecchymosis, deformity Back exam: Present: normal inspection Neurological exam: Present: alert, oriented X3, CN II-XII intact Skin exam: Present: warm, dry, intact, normal color. Absent: rash Course Vital Signs 01/12/24 15:30 Temperature 98.3 F Pulse Rate 53 L Respiratory 16 Rate Blood Pressure 172/80 O2 Sat by Pulse 98 Oximetry Medical Decision Making - Medical Decision Making Was pt. sent in by a medical professional or institution (, PA, STRATEGIC MARKETING SPECIALIST, urgent care, hospital, or fci...) When possible be specific @ -No Did you speak to anyone other than the patient for history (EMS, parent, family, police, friend...)? What history was obtained from this source @ -No Did you review nursing and triage notes (agree or disagree)? Why? @ -I reviewed and agree with nursing and triage notes Were old charts reviewed (outside hosp., previous admission, EMS record, old EKG, old radiological studies, urgent care reports/EKG's, fci records)? Report findings @ -No old charts were reviewed Differential Diagnosis (chest pain, altered mental status, abdominal pain women, abdominal pain men, vaginal bleeding, weakness, fever, dyspnea, syncope, headache, dizziness, GI bleed, back pain, seizure, CVA, palpatations, mental health, musculoskeletal)? @ -Differential Musculoskeletal Muscular strain, contusion, ligament sprain, fracture, arthritis, septic arthritis, bursitis, cellulitis, muscle spasm, nerve compression, DVT, arterial occlusion, herpes zoster, electrolyte abnormality, tumor.... This is not meant to be in all inclusive list EKG interpreted by me (3pts min.). @ -None X-rays interpreted by me (1pt min.). @ -Left knee no acute osseous abnormality, chronic changes CT interpreted by me (1pt min.). @ -The brain and C-spine without contrast negative for acute process U/S interpreted by me (1pt. min.). @ -None done What testing was considered but not performed or refused? (CT, X-rays, U/S, labs)? Why? @ -None What meds were considered but not given or refused? Why? @ -None Did you discuss the management of the patient with other professionals (professionals i.e. , PA, STRATEGIC MARKETING SPECIALIST, lab, RT, psych nurse, social work lecturer, public health training assistant, teacher, senior credit officer, case loader operator)? Give summary @ -No Was smoking cessation discussed for >3mins.? @ -No Was critical care preformed (if so, how long)? @ -No Were there social determinants of health that impacted care today? How? (Homelessness, low income, unemployed, alcoholism, drug addiction, transportation, low edu. Level, literacy, decrease access to med. care, [facility], rehab)? @ -No Was there de-escalation of care discussed even if they declined (Discuss DNR or withdrawal of care, Hospice)? DNR status @ -No What co-morbidities impacted this encounter? (DM, HTN, Smoking, COPD, CAD, Cancer, CVA, ARF, Chemo, Hep., AIDS, mental health diagnosis, sleep apnea, morbid obesity)? @ -None Was patient admitted / discharged? Hospital course, mention meds given and route, prescriptions, significant lab abnormalities, going to OR and other pertinent info. @ -Discharge. 63-year-old female with a fall. Neurovascularly intact. No neurological deficits. Patient noted to have mild tenderness to the left knee. With mild swelling. X-ray and CT scan unremarkable. Patient stable for discharge to continue supportive treatment at home. Discussed with Dr. Rodríguez Undiagnosed new problem with uncertain prognosis? @ -No Drug Therapy requiring intensive monitoring for toxicity (Heparin, Nitro, Insulin, Cardizem)? @ -No Were any procedures done? @ -No Diagnosis/symptom? @ -fall, ecchymosis, knee pain Acute, or Chronic, or Acute on Chronic? @ -Acute Uncomplicated (without systemic symptoms) or Complicated (systemic symptoms)? @ -uncomplicated Side effects of treatment? @ -No Exacerbation, Progression, or Severe Exacerbation? @ -No Poses a threat to life or bodily function? How? (Chest pain, [place], [place], pneumonia, PE, COPD, DKA, ARF, appy, cholecystitis, CVA, Diverticulitis, Homicidal, Suicidal, threat to staff... and all critical care pts) @ -No Disposition Clinical Impression: Fall, Contusion of knee Disposition: HOME SELF-CARE Condition: Good Instructions (If sedation given, give patient instructions): Fall Prevention for Older Adults (ED) Additional Instructions: Please return to the Emergency Department if symptoms worsen or any other concerns. Is patient prescribed a controlled substance at d/c from ED?: No Referrals: Neto Warner MD [Primary Care Provider] - 1-2 days Time of Disposition: 17:03
[2024-01-12 15:35] VITALS: BP 172/80; PULSE 53; RESP 16; TEMP 98.3
--- NOTE | 2024-01-12 16:14 | CT ---
EXAMINATION TYPE: CT brain cspine wo con DATE OF EXAM: 01/12/2024 3:53 PM COMPARISON: None. CLINICAL INDICATION: Female, 63 years old with history of fall, poss LOC; fall pain TECHNIQUE: Brain: Multiple axial CT images of the brain were obtained without IV contrast. Cspine: Axial CT images from the skull base to the inferior aspect of T2 we obtained without intraven ous contrast. Coronal and sagittal reformatted images were also reviewed. . CT DLP: 1375.3 mGycm, Automated exposure control for dose reduction was used. FINDINGS: Brain: Extra-axial spaces: No abnormal extra-axial fluid collections. Ventricular system: Within normal limits Cerebral parenchyma: No acute intraparenchymal hemorrhage or mass effect. The veliz-white junction is well differentiated. Cerebellum: Unremarkable. Mass effect: No evidence of midline shift. Intracranial vasculature: unremarkable Soft tissues: Normal. Calvarium/osseous structures: No depressed skull fracture. Paranasal sinuses and mastoid air cells: Clear. Visualized orbits: Orbital contents are intact. Cervical spine: Fracture: None. Osseous structures: Multilevel degenerative disc disease changes with endplate spurring and disc oste ophyte complex's. Vertebral alignment: Within normal limits. Spinal canal/Neural Foramina: No evidence of significant spinal canal narrowing. No evidence for sign ificant neural foraminal stenosis. Neck soft tissues: Prevertebral soft tissues are within normal limits. Other: The airway is patent. The lung apices are clear. IMPRESSION: 1. No acute intracranial process. 2. No evidence of cervical spine fracture. 3. Mild multilevel degenerative disc disease. [facility], , 01/12/2024 4:11 PM
--- NOTE | 2024-01-12 17:01 | XR ---
EXAMINATION TYPE: XR knee complete LT DATE OF EXAM: 01/12/2024 4:39 PM COMPARISON: 03/12/2022 CLINICAL INDICATION: Female, 63 years old with history of fall, injury, pain; [facility] TECHNIQUE: XR knee complete LT 3 views submitted. FINDINGS: No evidence of any acute osseous pathology, soft tissue swelling, or joint effusion is no raf. There is complete loss of joint space in the patellofemoral joint with osteophyte formation. Serge lindy is present. Calcified joint body present measuring 8 mm. IMPRESSION: 1. No acute osseous pathology. 2. End-stage patellofemoral osteoarthritic changes. [facility], , 01/12/2024 4:59 PM
== END 2024-01-12 18:04 | disposition home or self-care (01) ==
LOC: EC 15:17
DX: S80.02XA Contusion of left knee, initial encounter (principal); Z88.0 Allergy status to penicillin; Z88.2 Allergy status to sulfonamides; Z91.030 Bee allergy status; W01.0XXA Fall on same level from slipping, tripping and stumbling without subsequent striking against object, initial encounter
CPT/HCPCS: 70450; 72125; 99283; 99284